=== PATIENT | female | born 1955 | race Caucasian/White ===

== ENCOUNTER 2021-04-12 14:10 | Outpatient (REF) | payer MEDICAID, SELFPAY ==
--- NOTE | ~2021-04-12 | XR_ITS ---
EXAMINATION: XR KNEE, LEFT CLINICAL INFORMATION: Left knee pain. COMPARISON: None. TECHNIQUE: 4 views of the left knee. FINDINGS: Mild medial compartment joint space narrowing. Tiny patellofemoral marginal osteophytes. No osseous erosion. No fracture or dislocation. No abnormal soft tissue calcification. No significant joint effusion. XR/XR knee LT 4V IMPRESSION: Minimal medial and patellofemoral compartment arthrosis.
== END 2021-04-12 14:11 | disposition home or self-care (01) ==
LOC: HO.XRAY 14:10
PROVIDERS: PCP Internal Medicine Geriatric Medicine; Visit Provider Internal Medicine Geriatric Medicine
DX: M25.562 Pain in left knee (principal)
CPT/HCPCS: 73564

== ENCOUNTER 2021-07-13 10:57 | Outpatient (REF) | payer MEDICARE, MEDICAID, SELFPAY ==
--- NOTE | ~2021-07-13 | MM_ITS ---
EXAMINATION: BONE DENSITOMETRY CLINICAL INDICATION: Osteoporosis. COMPARISON: CT abdomen and pelvis 12/04/2018. TECHNIQUE: Using a [employer] DXA System (software version: 13.1) manufactured by [employer], dual-energy x-ray absorptiometry was performed of the lumbar spine and left hip. The images are of good technical quality. Summary results are attached. FINDINGS: AP SPINE L1-L4 (excluding L2 and L3): The data of L1-L4 has been changed to exclude the L2 and L3 vertebral bodies, because degenerative changes at these levels may cause overestimation of lumbar spine density. BMD 1.194 g/cm2, Z-score 1.2, T-score 0.2, normal. LEFT FEMUR, NECK: BMD 1.014 g/cm2, Z-score 0.9, T-score -0.2, normal. LEFT FEMUR, TOTAL: BMD 1.069 g/cm2, Z-score 1.3, T-score 0.5, normal. IDENTIFIED RISK FACTORS: Early menopause, left oophorectomy, rheumatoid arthritis, secondary osteoporosis. HISTORY OF FRACTURE: None listed. MEDICATIONS: Vitamin D. MM/XR DEXA axial skeleton IMPRESSION: 1. DIAGNOSIS: Normal bone density based on the lowest T-score value of -0.2 in the femoral neck applying World Health Organization criteria. 2. 10-YEAR FRACTURE RISK PREDICTION, FRAX: Major osteoporotic fracture (clinical spine, forearm, hip or shoulder) 4.5%. Hip fracture 0.2%. 3. Treatment Recommendations: NOF guidelines recommend consideration for treatment in postmenopausal women and men age 50 and older presenting with the following: -A hip or vertebral (clinical or morphometric) fracture. -T-score less than or equal to -2.5 at the femoral neck or spine after appropriate evaluation to exclude secondary causes. -Low bone mass at the hip or spine and a 10-year fracture probability by FRAX of greater than or equal to 3% for hip fracture or greater than or equal to 20% for major osteoporotic fracture based on the [place] adapted WHO algorithm. 4. Other Recommendations: All treatment decisions require clinical judgment and consideration of individual patient factors, including patient preferences, comorbidities, previous drug use, risk factors not captured in the FRAX model (e.g. frailty, falls, vitamin D deficiency, increased bone turnover, interval significant decline in bone density) and possible under or overestimation of fracture risk by FRAX. FUTURE SCAN RECOMMENDATION: People with diagnosed cases of osteoporosis or at high risk for fracture should have regular bone mineral density tests. For patients eligible for Medicare, routine testing is allowed once every 2 years. The testing frequency can be increased to one year for patients who have rapidly progressing disease, those who are receiving or discontinuing medical therapy to restore bone mass, or have additional risk factors.
== END 2021-07-13 10:58 | disposition home or self-care (01) ==
LOC: HO.MAMMO 10:57
PROVIDERS: Visit Provider Advanced Practice Midwife
DX: Z13.820 Encounter for screening for osteoporosis (principal); Z78.0 Asymptomatic menopausal state; M06.9 Rheumatoid arthritis, unspecified; Z79.899 Other long term (current) drug therapy
CPT/HCPCS: 77080

== ENCOUNTER 2021-09-26 13:59 | Outpatient (REF) | payer MEDICARE, MEDICAID, SELFPAY ==
[2021-09-26 15:04] LABS: MANUAL DIFF FLAG NO
[2021-09-26 15:16] LABS: Basophils Absolute Auto 0.1 X10*3/uL (0.0-0.2); Basophils Percent Auto 0.9 % (0-2); Eosinophils Absolute Auto 0.4 X10*3/uL (0.0-0.4); Eosinophils Percent Auto 3.5 % (0-4); Hematocrit 43.1 % (37.0-47.0); Hemoglobin 13.5 g/dl (12.0-16.0); Imm Gran Abs Auto 0.06 X10*3/uL (0.00-0.03); Imm Gran Pct Auto 0.6 % (0.0-0.4); Lymphocytes Absolute Auto 3.3 X10*3/uL (1.2-4.9); Lymphocytes Percent Auto 32.1 % (20-40); Mean Corpuscular HGB Conc 31.3 g/dl (31.0-35.0); Mean Corpuscular Hemoglobin 29.2 pg (27.0-33.0); Mean Corpuscular Volume 93.3 fL (80.0-98.0); Mean Platelet Volume 10.9 fL (9.4-12.3); Monocytes Absolute Auto 0.8 X10*3/uL (0.1-1.2); Monocytes Percent Auto 7.4 % (2-11); Neutrophils Absolute Auto 5.8 x10*3/uL (2.0-8.3); Neutrophils Percent Auto 55.5 % (45-73); Platelet Count 268 X10*3/uL (160-400); Red Blood Count 4.62 X10*6/uL (4.20-5.50); Red Cell Distribution Width 14.7 % (11.0-16.0); White Blood Count 10.4 X10*3/uL (4.8-10.8)
== END 2021-09-26 14:00 | disposition home or self-care (01) ==
LOC: HO.LAB 13:59
PROVIDERS: PCP Internal Medicine Geriatric Medicine; Visit Provider Internal Medicine Pulmonary Disease
DX: J45.909 Unspecified asthma, uncomplicated (principal); Z91.09 Other allergy status, other than to drugs and biological substances
CPT/HCPCS: 36415; 82785; 85025; 86003; 99202

== ENCOUNTER 2021-11-04 12:42 | Outpatient (REF) | payer MEDICARE, MEDICAID, SELFPAY ==
--- NOTE | 2021-11-04 14:56 | PFT_ITS ---
Forced vital capacity 76%, FEV1 77%, FEV1/FVC ratio is 79. FEF 25-75 67% and MVV 64%. Post bronchodilator therapy, there is no significant change. Total lung capacity 74% and residual volume 72%. Diffusion capacity 70%. CONCLUSION: Mild restrictive pulmonary disorder. No significant response to bronchodilator therapy. No significant degree of obstructive disorder is noted. MD JANES Barrientos/MODL / [id number]
== END 2021-11-04 12:43 | disposition home or self-care (01) ==
LOC: HO.RESP 12:42
PROVIDERS: PCP Internal Medicine Geriatric Medicine; Visit Provider Internal Medicine Pulmonary Disease
DX: J45.909 Unspecified asthma, uncomplicated (principal)
CPT/HCPCS: 94060; 94727; 94729

== ENCOUNTER → 2021-11-25 13:31 | Outpatient (BNVA) | payer MEDICARE, MEDICAID, SELFPAY | PROVIDERS: PCP Internal Medicine Geriatric Medicine; Visit Provider Internal Medicine Pulmonary Disease | DX: J45.909 Unspecified asthma, uncomplicated (principal); Z91.09 Other allergy status, other than to drugs and biological substances | CPT/HCPCS: 99212 ==

== ENCOUNTER 2021-12-23 14:26 | Outpatient (REF) | payer MEDICARE, MEDICAID, SELFPAY ==
--- NOTE | ~2021-12-23 | US_ITS ---
EXAMINATION: US DIAGNOSTIC ULTRASOUND BREAST, LEFT CLINICAL INFORMATION: Retroareolar pain.. COMPARISON: Mammography of same day and studies dating back to September 13, 2012. TECHNIQUE: Ultrasound of the breast is performed with real-time kelly scale imaging and color Doppler. FINDINGS: There is no focal suspicious finding. There is no solid mass, architectural abnormality, duct ectasia, or edema in the soft tissue planes. Results are discussed with the patient at time of visit. US/US breast LT limited IMPRESSION: No suspicious ultrasound findings in region of pain retroareolar region left breast. ASSESSMENT: BI-RADS 1: Negative RECOMMENDATION: Routine annual mammography screening. This patient's information was entered into a reminder system with a target due date for their next mammogram.
--- NOTE | ~2021-12-23 | MM_ITS ---
EXAMINATION: MM DIAGNOSTIC DIGITAL BREAST TOMOSYNTHESIS, BILATERAL US BREAST, TARGETED, LEFT CLINICAL INFORMATION: Left breast pain adjacent to the left nipple. The lifetime risk of breast cancer based on the Tyrer-Cuzick Model is 4.2%. COMPARISON: Mammography: 09/27/2018 and studies dating back to 09/13/2012. TECHNIQUE: Digital breast tomosynthesis is performed in both the craniocaudal and mediolateral oblique views along with computer-aided detection (CAD). Synthesized 2D images are generated from the tomosynthesis. ULTRASOUND: FINDINGS: There are scattered areas of fibroglandular density (ACR BI-RADS breast composition Category b). There are no new significant masses, abnormal calcifications, or other abnormalities. Stable bilateral calcifications and circumscribed densities again seen. Targeted breast ultrasound in the left retroareolar region did not demonstrate any abnormal cystic or solid masses or dilated ducts. No edematous change present. Results are discussed with the patient at time of visit. MM/MM tomosynthesis diagnostic BI IMPRESSION: There are no significant changes from prior study. ASSESSMENT: BI-RADS 1: Negative RECOMMENDATION: Routine annual mammography screening. This patient's information was entered into a reminder system with a target due date for their next mammogram.
== END 2021-12-23 14:27 | disposition home or self-care (01) ==
LOC: HO.MAMMO 14:26
PROVIDERS: PCP Internal Medicine Geriatric Medicine; Visit Provider Internal Medicine Geriatric Medicine
DX: N64.4 Mastodynia (principal)
CPT/HCPCS: 76642; 77062; 77066

== ENCOUNTER 2022-01-26 13:33 | Emergency (ER) | payer MEDICARE, MEDICAID, SELFPAY ==
--- NOTE | ~2022-01-26 | XR_ITS ---
EXAMINATION: XR CHEST CLINICAL INFORMATION: Cough COMPARISON: 12/01/2018 TECHNIQUE: Frontal view of the chest was obtained. FINDINGS: The lungs are well expanded. There is no focal consolidation, edema, or effusion. No pneumothorax. The cardiomediastinal silhouette is within normal limits. No acute osseous abnormality. XR/XR chest 1V IMPRESSION: Clear lungs.
[2022-01-26 13:35] VITALS: BP 149/93; PULSE 92; RESP 20; TEMP 36.9; O2SAT 96; BMI 36.4
[2022-01-26 14:10] LABS: COVID-19 Test Negative (Negative); IDNOW Serial# 16C4AD1C
[2022-01-26 14:21] LABS: Strep A Nucleic Acid Negative (Negative)
--- NOTE | 2022-01-26 16:11 | ECG_ITS ---
Test Reason : dyspnea Blood Pressure : / mmHG Vent. Rate : 080 BPM Atrial Rate : 080 BPM P-R Int : 132 ms QRS Dur : 086 ms QT Int : 412 ms P-R-T Axes : 017 -10 011 degrees QTc Int : 475 ms Normal sinus rhythm Minimal voltage criteria for LVH, may be normal variant ( R in aVL ) Borderline ECG When compared with ECG of 01-DEC-2018 11:39, Vent. rate has increased BY 29 BPM Nonspecific T wave abnormality, worse in Anterior leads QT has lengthened Referred By: Cheryl Valdez Electronically Signed By:PRUDENCE JIN MD
[2022-01-26] MEDS: Albuterol Sulfate (0.083%) 2.5 MG/3 ML VIAL.NEB 5 MG INHALE (16:28)
--- NOTE | 2022-01-26 16:29 | ED.URI ---
HPI - URI/Sore Throat General Chief Complaint: General Medical Stated Complaint: COUGH CHEST AND BACK PAIN Time Seen by Provider: 01/26/22 16:04 Source: patient Mode of arrival: ambulatory Limitations: language barrier (Pashto-Speaking) History of Present Illness HPI Narrative: 66-year-old female with a past medical history of asthma, environmental allergies, GERD, hyperlipidemia, hypertension, hypothyroidism, major depressive disorder and obesity presenting to the ED with complaints of subjective fevers, chills, fatigue, malaise, productive cough, nasal congestion / rhinorrhea, shortness of breath, dyspnea on exertion, orthopnea Radha, wheezing, chest pain/tightness for approximately 2 weeks which has been persistent not worsening although not getting better either. She reports that she is currently on Symbicort, albuterol and Singulair and no symptomatic relief. She denies any recent travel or sick contacts that she is aware of. She denies any dizziness, headaches, neck pain/stiffness, paresthesias, black or bloody sputum production, palpitations, nausea /vomiting / diarrhea or constipation, abdominal pain, back pain, dysuria, hematuria, abnormal vaginal discharge, lower extremity edema or calf tenderness, recent travel or sick contacts that she is aware of or any other symptoms complaints or concerns at this time. MD elicited complaint: fever, cough, rhinorrhea, nasal congestion and other ( Multiple complaints) Pertinent past history: other ( see above) Onset (ago): week(s) (2) Consistency: constant and progressively worsening Severity: moderate Description of mucous: clear, watery and yellow Able to tolerate fluids by mouth: Yes Exacerbating factors: exertion and deep breaths Relieving factors: nothing Associated symptoms: fever, chills, myalgias, diaphoresis, rhinorrhea, nasal congestion, cough, chest pain and shortness of breath Treatments prior to arrival: other ( see above) Related Data Home Medications Medication Instructions Recorded Confirmed albuterol sulfate 90 mcg/actuation 2 puff INHALATION QID 09/26/21 aerosol inhaler (ProAir HFA) amlodipine 5 mg tablet 5 mg PO DAILY 09/26/21 atorvastatin 20 mg tablet 20 mg PO DAILY 09/26/21 cholecalciferol (vitamin D3) 25 25 mcg PO DAILY 09/26/21 mcg (1,000 unit) capsule citalopram 20 mg tablet 20 mg PO DAILY 09/26/21 clonazepam 2 mg tablet 2 mg PO DAILY 09/26/21 levothyroxine 88 mcg tablet 88 mcg PO DAILY 09/26/21 (Unithroid) montelukast 10 mg tablet 10 mg PO DAILY 09/26/21 nabumetone 750 mg tablet 750 mg PO BID 09/26/21 nortriptyline 10 mg capsule 10 mg PO DAILY 09/26/21 omeprazole 20 mg capsule,delayed 20 mg PO DAILY 09/26/21 release pregabalin 50 mg capsule (Lyrica) 50 mg PO DAILY 09/26/21 tizanidine 4 mg capsule 4 mg PO BID PRN 09/26/21 trazodone 50 mg tablet 50 mg PO DAILY 09/26/21 Previous Rx's Medication Instructions Recorded fluticasone fur. 200 mcg-umeclid 1 inh INHALATION DAILY 30 Days #1 11/25/21 62.5 mcg-vilant 25 mcg ea inhalat.powder (Trelegy Ellipta) albuterol sulfate 0.63 mg/3 mL 0.63 mg (3 mL) INHALATION QID PRN 01/26/22 solution for nebulization #75 ml albuterol sulfate 90 mcg/actuation 1 inh INHALATION QID PRN #8.5 g 01/26/22 aerosol inhaler doxycycline monohydrate 100 mg 100 mg PO BID 10 Days #20 tab 01/26/22 tablet prednisone 20 mg tablet 40 mg PO DAILY 5 Days #10 tab 01/26/22 Allergies Allergy/AdvReac Type Severity Reaction Status Date / Time morphine [MORPHINE] Allergy Unknown RASH, Verified 11/25/21 13:38 rash, vomiting Review of Systems Review of Systems: Constitutional : denies med noncompliance, no history of PE or DVT, denies recent travel, No Fever, No Chills ENT/Mouth : No Hoarseness, No sore throat, + Rhinorrhea, + Nasal congestion, No Sinus Pressure, No Ear Pain, No stridor, Eyes: No Redness, No Discharge, No Vision Changes Cardiovascular : + Chest Pain, + SOB, + Dyspnea on Exertion, No Edema, no pleurisy, Respiratory : + Cough, + wheezing, + Sputum, no stridor, no hemoptysis, Gastrointestinal : No Nausea, No Vomiting, No Diarrhea, No abdominal Pain Genitourinary : No Dysuria, No Hematuria Musculoskeletal : No joint pain/swelling, + Myalgias Extremities: no extremity swelling /pain Skin : No rash, no itching, no swelling Neuro : No Weakness, No Numbness, No Headache, No Dizziness, No Paresthesias Psych : No anxiety, depression Heme/Lymph: No Bruising, No Bleeding Endocrine : No Polyuria, No Polydipsia Yes all other systems are reviewed and are negative [facility] Past Medical History Attestation statement: The following information was validated with the patient. Source: old records reviewed, obtained from family and nursing notes reviewed Medical History Asthma Environmental allergies GERD (gastroesophageal reflux disease) Hyperlipidemia Hypertension Hypothyroidism MDD (major depressive disorder) Obesity Surgical History History of laparoscopic cholecystectomy (~2018) Social History Social History Advance Directives: No Advance Directives Information Provided: No Physical Exam Vital Signs: Vital Signs: Last Vital Signs Temp 98.4 F 01/26/22 13:35 Pulse 75 01/26/22 16:31 Resp 16 01/26/22 16:31 BP 149/93 H 01/26/22 13:35 Pulse Ox 96 01/26/22 13:35 BMI result Body Mass Index 36.4 vital signs have been reviewed as normal and appeared to be correct. Blood pressure 149/93. Heart rate normal. Respiration rate normal. Temperature normal. Oxygen saturation normal. Appearance: Alert. Oriented X3. No acute distress. Head: Normal external exam. Normocephalic. Atraumatic. Eyes: PERRLA. EOMI. Conjunctiva and sclera normal. Eyelids normal. ENT: EAC normal. TM's Normal. Pharynx normal. Uvula midline. Moist mucous membranes. No lesions/ulcerations or masses noted on the tongue. Normal voice. No trismus noted. No drooling noted. No muffled voice noted. Neck: Normal inspection. Neck supple. FROM. No adenopathy. Thyroid Normal. No tracheal deviation noted. No crepitus is noted. No meningeal signs. No neck mass noted. No signs of trauma noted. CVS: Normal heart rate and rhythm. Heart sound normal. Pulses normal throughout. No murmurs/rales/gallops. Respiratory: No respiratory distress. although decreased breath sounds with expiratory wheezing at the bases. No rales/ rhonchi. Chest is nontender. No crepitus is noted. No signs of trauma noted. Painless inspiration. No accessory muscle usage or decreased air movement. Abdomen: Soft and nontender. Bowel sounds normal in all 4 quadrants. No distention noted. No organomegaly noted. No visible injury noted. Back: Full range of motion noted. Nontender. Skin: Skin warm and dry. Normal skin color. Normal skin turgor. No rashes/lesions/lacerations noted. Extremities: No lower extremity edema. No calf tenderness is noted. Extremities exhibit normal range of motion and nontender. Neuro: Oriented X 3. No motor deficit. No sensory deficit. Reflexes normal. Normal steady gait. No focal neuro deficits noted. CN's II-XII intact bilaterally? Vascular: + radial pulses/+ 2 distal pedal pulses/+2 dorsalis pedis b/l. Normal cap refill. No cyanosis noted to upper extremity nails and lower extremity toes nails. Course Course Course Narrative: 16:15pm - 66-year-old female with a past medical history of asthma, environmental allergies, GERD, hyperlipidemia, hypertension, hypothyroidism, major depressive disorder and obesity presenting to the ED with complaints of subjective fevers, chills, fatigue, malaise, productive cough, nasal congestion / rhinorrhea, shortness of breath, dyspnea on exertion, orthopnea Radha, wheezing, chest pain/tightness for approximately 2 weeks which has been persistent not worsening although not getting better either. She reports that she is currently on Symbicort, albuterol and Singulair and no symptomatic relief. Patient negative for COVID and strep. Will obtain labs, EKG, chest x-ray provider breathing treatment 60 mg of prednisone and re-evaluate. Reevaluation(s) Reevaluation #1: - labs reviewed and all within normal limits. Troponin negative. Chest x-ray within normal limits no acute processes noted. EKG normal sinus rhythm no acute processes noted similar compared to prior EKG. Patient reports she feels better after her breathing treatment. 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 Patient understands agrees with this plan. Time: 17:11 MDM - URI/Sore Throat Medical Records Attestation: I reviewed the patient's medical records. Lab Data Attestation: I reviewed the patient's lab results. Result diagrams: 01/26/22 16:28 01/26/22 16:28 Labs: Lab Results 01/26/22 01/26/22 01/26/22 Range/Units 13:39 13:40 16:28 WBC 10.2 (4.8-10.8) X10*3/uL RBC 4.60 (4.20-5.50) X10*6/uL Hgb 12.9 (12.0-16.0) g/dl Hct 41.1 (37.0-47.0) % MCV 89.3 (80.0-98.0) fL MCH 28.0 (27.0-33.0) pg MCHC 31.4 (31.0-35.0) g/dl RDW 15.7 (11.0-16.0) % Plt Count 228 (160-400) X10*3/uL MPV 10.7 (9.4-12.3) fL Immature Gran % (Auto) 1.2 H (0.0-0.4) % Neut % (Auto) 53.2 (45-73) % Lymph % (Auto) 35.9 (20-40) % [place] % (Auto) 7.4 (2-11) % Eos % (Auto) 1.9 (0-4) % Baso % (Auto) 0.4 (0-2) % Lymph # (Auto) 3.7 (1.2-4.9) X10*3/uL [place] # (Auto) 0.8 (0.1-1.2) X10*3/uL Eos # (Auto) 0.2 (0.0-0.4) X10*3/uL Baso # (Auto) 0.0 (0.0-0.2) X10*3/uL Abs Immat Gran (auto) 0.12 H (0.00-0.03) X10*3/uL Absolute Neuts (auto) 5.4 (2.0-8.3) x10*3/uL Absolute Nucleated RBC 0.000 (0.0-0.012) X10*3/uL Nucleated RBC % (auto) 0.0 (0.0-0.2) /100WBC Sodium (135-145) mmol/L Potassium (3.3-5.1) mmol/L Chloride (96-108) mmol/L Carbon Dioxide (22-29) mmol/L Anion Gap (12-20) BUN (9-16) mg/dL Creatinine (0.5-1.4) mg/dL Estim Creat Clear Calc Estimated GFR Random Glucose (60-115) mg/dL Calcium (8.4-10.2) mg/dL Magnesium (1.6-2.6) mg/dL Total Bilirubin (0.0-1.0) mg/dL AST (5-31) U/L ALT (0-31) U/L Alkaline Phosphatase (39-117) U/L Troponin I High Sens (<3.5-17.0) ng/L B-Natriuretic Peptide (<100) pg/mL Total Protein (6.5-8.0) g/dL Albumin (3.5-5.0) g/dL COVID-19 (CONY) Negative (Negative) COVID-19 Clin Com See Note Influenza Type A (KIARA) (Negative) Influenza Type B (KIARA) (Negative) Influenza A & B Note S. pyogenes GrpA KIARA Negative (Negative) 01/26/22 01/26/22 01/26/22 Range/Units 16:28 16:28 16:28 WBC (4.8-10.8) X10*3/uL RBC (4.20-5.50) X10*6/uL Hgb (12.0-16.0) g/dl Hct (37.0-47.0) % MCV (80.0-98.0) fL MCH (27.0-33.0) pg MCHC (31.0-35.0) g/dl RDW (11.0-16.0) % Plt Count (160-400) X10*3/uL MPV (9.4-12.3) fL Immature Gran % (Auto) (0.0-0.4) % Neut % (Auto) (45-73) % Lymph % (Auto) (20-40) % [place] % (Auto) (2-11) % Eos % (Auto) (0-4) % Baso % (Auto) (0-2) % Lymph # (Auto) (1.2-4.9) X10*3/uL [place] # (Auto) (0.1-1.2) X10*3/uL Eos # (Auto) (0.0-0.4) X10*3/uL Baso # (Auto) (0.0-0.2) X10*3/uL Abs Immat Gran (auto) (0.00-0.03) X10*3/uL Absolute Neuts (auto) (2.0-8.3) x10*3/uL Absolute Nucleated RBC (0.0-0.012) X10*3/uL Nucleated RBC % (auto) (0.0-0.2) /100WBC Sodium 142 (135-145) mmol/L Potassium 4.1 (3.3-5.1) mmol/L Chloride 108 (96-108) mmol/L Carbon Dioxide 25 (22-29) mmol/L Anion Gap 13 (12-20) BUN 14 (9-16) mg/dL Creatinine 0.92 (0.5-1.4) mg/dL Estim Creat Clear Calc 61.3 Estimated GFR > 60 Random Glucose 102 (60-115) mg/dL Calcium 9.3 (8.4-10.2) mg/dL Magnesium 1.7 (1.6-2.6) mg/dL Total Bilirubin 0.4 (0.0-1.0) mg/dL AST 22 (5-31) U/L ALT 29 (0-31) U/L Alkaline Phosphatase 80 (39-117) U/L Troponin I High Sens < 3.5 (<3.5-17.0) ng/L B-Natriuretic Peptide 11 (<100) pg/mL Total Protein 6.8 (6.5-8.0) g/dL Albumin 3.9 (3.5-5.0) g/dL COVID-19 (CONY) (Negative) COVID-19 Clin Com Influenza Type A (KIARA) Negative (Negative) Influenza Type B (KIARA) Negative (Negative) Influenza A & B Note See Note S. pyogenes GrpA KIARA (Negative) Imaging Data Chest x-ray: Attestation: I personally reviewed and interpreted this imaging study as follows: Radiologist's impression: FINDINGS: The lungs are well expanded. There is no focal consolidation, edema, or effusion. No pneumothorax. The cardiomediastinal silhouette is within normal limits. No acute osseous abnormality. XR/XR chest 1V IMPRESSION: Clear lungs. ECG Data Attestation: I personally reviewed and interpreted this ECG as follows: ECG interpretation date: 01/26/22 ECG interpretation time: 16:14 Interpretation: Normal sinus rhythm with ventricular rate of 80 with minimal voltage criteria for LVH otherwise no acute ischemic change are noted. Similar when compared to prior EKG similar when compared to prior EKG 12/01/2018. Critical Care Time Critical Care Time Critical Care Time: Yes Total Critical Care Time: 60 Attestation: I personally attest to this time spent taking care of the patient Discharge Plan Discharge Clinical Impression: Asthma exacerbation, Bronchitis Patient Disposition: Home, Self-Care Instructions: Asthma (ED), Acute Bronchitis (ED) Prescriptions: New prednisone 20 mg tablet 40 mg PO DAILY 5 Days Qty: 10 0RF albuterol sulfate 90 mcg/actuation HFA aerosol inhaler 1 inh inhalation QID PRN (Reason: shortness of breath or wheezing) Qty: 8.5 0RF doxycycline monohydrate 100 mg tablet 100 mg PO BID 10 Days Qty: 20 0RF albuterol sulfate 0.63 mg/3 mL solution for nebulization 0.63 mg inhalation QID PRN (Reason: shortness of breath or wheezing) Qty: 75 0RF No Action Trelegy Ellipta 200-62.5-25 mcg blister with device 1 inh inhalation DAILY 30 Days Qty: 1 6RF levothyroxine [Unithroid] 88 mcg tablet 88 mcg PO DAILY 0RF tizanidine 4 mg capsule 4 mg PO BID PRN0RF citalopram 20 mg tablet 20 mg PO DAILY 0RF omeprazole 20 mg capsule,delayed release(DR/EC) 20 mg PO DAILY 0RF atorvastatin 20 mg tablet 20 mg PO DAILY 0RF nortriptyline 10 mg capsule 10 mg PO DAILY 0RF albuterol sulfate [ProAir HFA] 90 mcg/actuation HFA aerosol inhaler 2 puff inhalation QID 0RF clonazepam 2 mg tablet 2 mg PO DAILY 0RF trazodone 50 mg tablet 50 mg PO DAILY 0RF pregabalin [Lyrica] 50 mg capsule 50 mg PO DAILY 0RF nabumetone 750 mg tablet 750 mg PO BID 0RF amlodipine 5 mg tablet 5 mg PO DAILY 0RF cholecalciferol (vitamin D3) 25 mcg (1,000 unit) capsule 25 mcg PO DAILY 0RF montelukast 10 mg tablet 10 mg PO DAILY 0RF Referrals: Name,MD Kevin [Primary Care Provider] - 2 days Print Language: Romanian
[2022-01-26 16:31] VITALS: PULSE 75; RESP 16; O2SAT 99
[2022-01-26 16:34] LABS: MANUAL DIFF FLAG NO
[2022-01-26 16:35] LABS: Basophils Percent Auto 0.4 % (0-2); Eosinophils Absolute Auto 0.2 X10*3/uL (0.0-0.4); Eosinophils Percent Auto 1.9 % (0-4); Hematocrit 41.1 % (37.0-47.0); Hemoglobin 12.9 g/dl (12.0-16.0); Imm Gran Abs Auto 0.12 X10*3/uL (0.00-0.03); Imm Gran Pct Auto 1.2 % (0.0-0.4); Lymphocytes Absolute Auto 3.7 X10*3/uL (1.2-4.9); Lymphocytes Percent Auto 35.9 % (20-40); Mean Corpuscular HGB Conc 31.4 g/dl (31.0-35.0); Mean Corpuscular Volume 89.3 fL (80.0-98.0); Mean Platelet Volume 10.7 fL (9.4-12.3); Monocytes Absolute Auto 0.8 X10*3/uL (0.1-1.2); Monocytes Percent Auto 7.4 % (2-11); Neutrophils Absolute Auto 5.4 x10*3/uL (2.0-8.3); Neutrophils Percent Auto 53.2 % (45-73); Platelet Count 228 X10*3/uL (160-400); Red Cell Distribution Width 15.7 % (11.0-16.0); White Blood Count 10.2 X10*3/uL (4.8-10.8)
[2022-01-26 16:52] LABS: Alanine Aminotransferase 29 U/L (0-31); Albumin Level 3.9 g/dL (3.5-5.0); Alkaline Phosphatase 80 U/L (39-117); Anion Gap 13 (12-20); Aspartate Amino Transferase 22 U/L (5-31); Bilirubin Total 0.4 mg/dL (0.0-1.0); Blood Urea Nitrogen 14 mg/dL (9-16); Calcium 9.3 mg/dL (8.4-10.2); Carbon Dioxide 25 mmol/L (22-29); Chloride 108 mmol/L (96-108); Creatinine Clr Calc Pharmacy 61.3; Estimated Glomerular Filt Rate > 60; Glucose Random 102 mg/dL (60-115); Influenza A Negative (Negative); Influenza B2 Negative (Negative); Magnesium 1.7 mg/dL (1.6-2.6); Potassium 4.1 mmol/L (3.3-5.1); Sodium 142 mmol/L (135-145); Total Protein 6.8 g/dL (6.5-8.0)
[2022-01-26 16:59] LABS: Troponin-I High Sensitivity < 3.5 ng/L (<3.5-17.0)
[2022-01-26] MEDS: predniSONE 20 MG TABLET 60 MG PO (17:23)
[2022-01-26 17:26] LABS: B Type Natriuretic Peptide 11 pg/mL (<100)
== END 2022-01-26 17:32 | disposition home or self-care (01) ==
PROVIDERS: Physician Assistant Medical; Emergency Provider Emergency Medicine; PCP Internal Medicine Geriatric Medicine
DX: J45.901 Unspecified asthma with (acute) exacerbation (principal); I10 Essential (primary) hypertension; Z20.822 Contact with and (suspected) exposure to COVID-19
CPT/HCPCS: 36415; 71045; 80053; 83735; 83880; 84484; 85025; 87502; 87635; 87651; 93005; 94640; 99282; 99284

== ENCOUNTER 2022-04-05 12:47 | Emergency (ER) | payer MEDICARE, MEDICAID, SELFPAY ==
--- NOTE | ~2022-04-05 | US_ITS ---
EXAMINATION: US VENOUS ULTRASOUND WITH DOPPLER LOWER EXTREMITY, BILATERAL CLINICAL INFORMATION: Leg swelling. COMPARISON: None TECHNIQUE: Ultrasound of the deep veins is performed from the hip to the calf with compression sonography and color and pulse Doppler assessment. Spectral analysis with color-flow imaging is performed. FINDINGS: RIGHT: There is normal venous compression and respiratory variation and augmented flow. The visualized common femoral vein, superficial femoral vein, profunda femoral vein, popliteal vein, and the trifurcation region shows no evidence of deep venous thrombosis. No right popliteal cyst. The subcutaneous soft tissues are unremarkable. LEFT: There is normal venous compression and respiratory variation and augmented flow. The visualized common femoral vein, superficial femoral vein, profunda femoral vein, popliteal vein, and the trifurcation region shows no evidence of deep venous thrombosis. No left popliteal cyst. The subcutaneous soft tissues are unremarkable. If the patient's symptoms persist, followup ultrasound in 5 days 7 days might be of value to exclude proximal propagation from a non-visualized calf vein. US/US venous duplex LE BI IMPRESSION: No evidence for deep venous thrombosis in the visualized veins of the bilateral lower extremities.
[2022-04-05 13:52] VITALS: BP 155/85; PULSE 86; RESP 18; TEMP 36.7; O2SAT 99; BMI 38.4
--- NOTE | 2022-04-05 16:06 | ED_ITS ---
HPI - Extremity Problem General Chief complaint: Extremity Injury, Lower Stated complaint: ? blood clot in leg Time Seen by Provider: 04/05/22 16:05 Source: patient Mode of arrival: ambulatory Limitations: no limitations History of Present Illness HPI Narrative: 66-year-old female with history of asthma, fibromyalgia, HTN, HLD, migraine headaches, chronic back pain seasonal allergies who presents to the ER for ev aluation of a possible blood clot in her leg. She states she was seen at the [facility] yesterday for lower extremity swelling that has been going on since March 16. She had blood work done there. She was called today and told that she has a blood clot in her leg and she needs to go to the hospital. She denies ever having an ultrasound done there. She reports both of her lower extremities are very sore and swollen. She denies any trauma. She is not on any blood thinners. She does not have a history of any blood clots in the past. She has no chest pain or shortness of breath. She reports some back pain which she attributes to kidney pain. She denies any hematuria or dysuria. MD Complaint: extremity swelling Onset (ago): week(s) Pain Consistency: constant Location: left, right and lower extremity Severity scale (1-10): 7 Quality: aching Radiation: proximal Relieving factors: elevation Exacerbating factors: weight bearing, exertion and palpation Associated symptoms: myalgias Related Data Home Medications Medication Instructions Recorded Confirmed albuterol sulfate 90 mcg/actuation 2 puff inhalation QID 09/26/21 aerosol inhaler (ProAir HFA) amlodipine 5 mg tablet 5 mg PO DAILY 09/26/21 atorvastatin 20 mg tablet 20 mg PO DAILY 09/26/21 cholecalciferol (vitamin D3) 25 25 mcg PO DAILY 09/26/21 mcg (1,000 unit) capsule citalopram 20 mg tablet 20 mg PO DAILY 09/26/21 clonazepam 2 mg tablet 2 mg PO DAILY 09/26/21 levothyroxine 88 mcg tablet 88 mcg PO DAILY 09/26/21 (Unithroid) montelukast 10 mg tablet 10 mg PO DAILY 09/26/21 nabumetone 750 mg tablet 750 mg PO BID 09/26/21 nortriptyline 10 mg capsule 10 mg PO DAILY 09/26/21 omeprazole 20 mg capsule,delayed 20 mg PO DAILY 09/26/21 release pregabalin 50 mg capsule (Lyrica) 50 mg PO DAILY 09/26/21 tizanidine 4 mg capsule 4 mg PO BID PRN 09/26/21 trazodone 50 mg tablet 50 mg PO DAILY 09/26/21 Previous Rx's Medication Instructions Recorded fluticasone fur. 200 mcg-umeclid 1 inh inhalation DAILY 30 days #1 11/25/21 62.5 mcg-vilant 25 mcg ea inhalat.powder (Trelegy Ellipta) albuterol sulfate 0.63 mg/3 mL 0.63 mg (3 mL) inhalation QID PRN 01/26/22 solution for nebulization shortness of breath or wheezing #75 mL albuterol sulfate 90 mcg/actuation 1 inh inhalation QID PRN shortness 01/26/22 aerosol inhaler of breath or wheezing #8.5 grams doxycycline monohydrate 100 mg 100 mg PO BID Bronchitis/asthma 01/26/22 tablet exacerbation 10 days #20 tabs prednisone 20 mg tablet 40 mg PO DAILY rash 5 days #10 tabs 01/26/22 Allergies Allergy/AdvReac Type Severity Reaction Status Date / Time morphine [MORPHINE] Allergy Unknown RASH, Verified 04/05/22 13:52 rash, vomiting Review of Systems Review of Systems: Constitutional: No Fever, No Chills ENT/Mouth: No sore throat, No Rhinorrhea, No Swallowing Difficulty Eyes: No Eye Pain, No Swelling, No Redness Cardiovascular: No Chest Pain, No SOB, No Orthopnea, + Edema Respiratory: No Cough, No Sputum, No Wheezing, No dyspnea Gastrointestinal: No Nausea, No Vomiting, No Diarrhea, No abdominal Pain, No H ematochezia, No Melena Genitourinary: No Dysuria, No Urinary Frequency, No Hematuria Musculoskeletal: No joint pain, + Myalgias Skin: No Skin Lesions, No rash Neuro: No Weakness, No Numbness, No Dizziness, No Headache Psych: No Anxiety/Panic, No Depression Heme/Lymph: No Bruising, No Lymphadenopathy Endocrine: No Polyuria, No Polydipsia PMFSH Past Medical History Medical History Asthma Environmental allergies GERD (gastroesophageal reflux disease) Hyperlipidemia Hypertension Hypothyroidism MDD (major depressive disorder) Obesity Surgical History History of laparoscopic cholecystectomy (~2018) Social History Social History Advance Directives: Yes Advance Directives Information Provided: Yes Advance Directives on File: No Physical Exam Vital Signs: Vital Signs: Last Vital Signs Temp 98.1 F 04/05/22 13:52 Pulse 86 04/05/22 13:52 Resp 18 04/05/22 13:52 BP 155/85 H 04/05/22 13:52 Pulse Ox 99 04/05/22 13:52 O2 Del Method 04/05/22 13:52 BMI result Body Mass Index 38.4 Appearance: Alert. Oriented X3. No acute distress. Eyes: Pupils equal, round and reactive to light. ENT: Pharynx normal. Neck: Normal inspection. Neck supple. CVS: Normal heart rate and rhythm. Pulses normal. Respiratory: No respiratory distress. Breath sounds normal. Abdomen: Soft and nontender. +BS x4 Skin: Skin warm and dry. Normal skin color. Normal skin turgor. No rashes. Extremities: 2+ bilateral lower extremity edema pitting, tender calves bilaterally. Neuro: Oriented X 3. No motor deficit. No sensory deficit. Slow but steady gait. Course Course Course Narrative: 66-year-old female presents to the ER with lower extremity swelling for the last few weeks. She has calf tenderness bilaterally and pitting edema of the lower legs. She is ambulatory. She has no chest pain, no shortness of breath, no pleuritic pain, no tachycardia no hypoxia. She reports she was told she had a blood clot based on blood work that was done at the [facility] the other day. Will plan to get lower extremity Dopplers now, check coags, LFTs and CBC in anticipation of starting anticoagulation today. Reevaluation(s) Reevaluation #1: Lower extremity Dopplers are negative for DVT. Patient has no signs or symptoms of pulmonary embolism at this time. Her heart rates are normal. She is not hypoxic. Her lower extremity edema is equal and bilateral. She has no known hypercoagulable state and no history of blood clots in the past. No recent moise rgeries, no recent travel. Low suspicion for pulmonary embolism at this time. Will have her follow up back up with her PCP, start elevation, recommended compression stockings. Advised to return to the emergency room or call 911 if she develops shortness of breath, chest pain, dizziness or any worsening of her symptoms. Stable for DC home. MDM - Extremity (Nontraumatic) Lab Data Result diagrams: 04/05/22 17:21 04/05/22 17:21 Labs: Lab Results 04/05/22 04/05/22 04/05/22 Range/Units 17:21 17:21 17:21 WBC 7.9 (4.8-10.8) X10*3/uL RBC 4.28 (4.20-5.50) X10*6/uL Hgb 12.4 (12.0-16.0) g/dl Hct 39.1 (37.0-47.0) % MCV 91.4 (80.0-98.0) fL MCH 29.0 (27.0-33.0) pg MCHC 31.7 (31.0-35.0) g/dl RDW 16.4 H (11.0-16.0) % Plt Count 298 D (160-400) X10*3/uL MPV 10.9 (9.4-12.3) fL Immature Gran % (Auto) 0.6 H (0.0-0.4) % Neut % (Auto) 43.4 L (45-73) % Lymph % (Auto) 40.1 H (20-40) % [place] % (Auto) 8.4 (2-11) % Eos % (Auto) 6.6 H (0-4) % Baso % (Auto) 0.9 (0-2) % Lymph # (Auto) 3.2 (1.2-4.9) X10*3/uL [place] # (Auto) 0.7 (0.1-1.2) X10*3/uL Eos # (Auto) 0.5 H (0.0-0.4) X10*3/uL Baso # (Auto) 0.1 (0.0-0.2) X10*3/uL Abs Immat Gran (auto) 0.05 H (0.00-0.03) X10*3/uL Absolute Neuts (auto) 3.4 (2.0-8.3) x10*3/uL Absolute Nucleated RBC 0.000 (0.0-0.012) X10*3/uL Nucleated RBC % (auto) 0.0 (0.0-0.2) /100WBC PT 10.5 (10.0-13.1) SEC INR 0.9 (0.9-1.1) APTT 34.3 (26.0-36.4) SEC Sodium 144 (135-145) mmol/L Potassium 3.8 (3.3-5.1) mmol/L Chloride 110 H (96-108) mmol/L Carbon Dioxide 22 (22-29) mmol/L Anion Gap 16 (12-20) BUN 13 (9-16) mg/dL Creatinine 0.85 (0.5-1.4) mg/dL Estim Creat Clear Calc 65.5 Estimated GFR > 60 Random Glucose 89 (60-115) mg/dL Calcium 8.8 (8.4-10.2) mg/dL Total Bilirubin 0.5 (0.0-1.0) mg/dL Direct Bilirubin 0.2 (0.0-0.5) mg/dL AST 18 (5-31) U/L ALT 19 (0-31) U/L Alkaline Phosphatase 84 (39-117) U/L B-Natriuretic Peptide (<100) pg/mL Total Protein 6.8 (6.5-8.0) g/dL Albumin 4.1 (3.5-5.0) g/dL 04/05/22 Range/Units 17:21 WBC (4.8-10.8) X10*3/uL RBC (4.20-5.50) X10*6/uL Hgb (12.0-16.0) g/dl Hct (37.0-47.0) % MCV (80.0-98.0) fL MCH (27.0-33.0) pg MCHC (31.0-35.0) g/dl RDW (11.0-16.0) % Plt Count (160-400) X10*3/uL MPV (9.4-12.3) fL Immature Gran % (Auto) (0.0-0.4) % Neut % (Auto) (45-73) % Lymph % (Auto) (20-40) % [place] % (Auto) (2-11) % Eos % (Auto) (0-4) % Baso % (Auto) (0-2) % Lymph # (Auto) (1.2-4.9) X10*3/uL [place] # (Auto) (0.1-1.2) X10*3/uL Eos # (Auto) (0.0-0.4) X10*3/uL Baso # (Auto) (0.0-0.2) X10*3/uL Abs Immat Gran (auto) (0.00-0.03) X10*3/uL Absolute Neuts (auto) (2.0-8.3) x10*3/uL Absolute Nucleated RBC (0.0-0.012) X10*3/uL Nucleated RBC % (auto) (0.0-0.2) /100WBC PT (10.0-13.1) SEC INR (0.9-1.1) APTT (26.0-36.4) SEC Sodium (135-145) mmol/L Potassium (3.3-5.1) mmol/L Chloride (96-108) mmol/L Carbon Dioxide (22-29) mmol/L Anion Gap (12-20) BUN (9-16) mg/dL Creatinine (0.5-1.4) mg/dL Estim Creat Clear Calc Estimated GFR Random Glucose (60-115) mg/dL Calcium (8.4-10.2) mg/dL Total Bilirubin (0.0-1.0) mg/dL Direct Bilirubin (0.0-0.5) mg/dL AST (5-31) U/L ALT (0-31) U/L Alkaline Phosphatase (39-117) U/L B-Natriuretic Peptide 24 (<100) pg/mL Total Protein (6.5-8.0) g/dL Albumin (3.5-5.0) g/dL Critical Care Time Critical Care Time Critical Care Time: No Discharge Plan Discharge Clinical Impression: Bilateral edema of lower extremity Patient Disposition: Home, Self-Care Instructions: Leg Edema (ED) Additional Instructions: Your lab workup today was unremarkable. Your ultrasound did not show any evidence of blood clots. Recommend elevating your legs whenever possible. Recommend compression stockings Limit your salt intake. Follow up with your doctor. If you develop shortness of breath, chest pain, or any new or worsening symptoms call 911 or come back to the ER for further evaluation. Prescriptions: No Action prednisone 20 mg tablet 40 mg PO DAILY 5 Days Qty: 10 0RF albuterol sulfate 90 mcg/actuation HFA aerosol inhaler 1 inh inhalation QID PRN (Reason: shortness of breath or wheezing) Qty: 8.5 0RF doxycycline monohydrate 100 mg tablet 100 mg PO BID 10 Days Qty: 20 0RF albuterol sulfate 0.63 mg/3 mL solution for nebulization 0.63 mg inhalation QID PRN (Reason: shortness of breath or wheezing) Qty: 75 0RF Trelegy Ellipta 200-62.5-25 mcg blister with device 1 inh inhalation DAILY 30 Days Qty: 1 6RF levothyroxine [Unithroid] 88 mcg tablet 88 mcg PO DAILY tizanidine 4 mg capsule 4 mg PO BID PRN citalopram 20 mg tablet 20 mg PO DAILY omeprazole 20 mg capsule,delayed release(DR/EC) 20 mg PO DAILY atorvastatin 20 mg tablet 20 mg PO DAILY nortriptyline 10 mg capsule 10 mg PO DAILY albuterol sulfate [ProAir HFA] 90 mcg/actuation HFA aerosol inhaler 2 puff inhalation QID clonazepam 2 mg tablet 2 mg PO DAILY trazodone 50 mg tablet 50 mg PO DAILY pregabalin [Lyrica] 50 mg capsule 50 mg PO DAILY nabumetone 750 mg tablet 750 mg PO BID amlodipine 5 mg tablet 5 mg PO DAILY cholecalciferol (vitamin D3) 25 mcg (1,000 unit) capsule 25 mcg PO DAILY montelukast 10 mg tablet 10 mg PO DAILY
[2022-04-05 17:28] LABS: MANUAL DIFF FLAG NO
[2022-04-05 17:29] LABS: Basophils Absolute Auto 0.1 X10*3/uL (0.0-0.2); Basophils Percent Auto 0.9 % (0-2); Eosinophils Absolute Auto 0.5 X10*3/uL (0.0-0.4); Eosinophils Percent Auto 6.6 % (0-4); Hematocrit 39.1 % (37.0-47.0); Hemoglobin 12.4 g/dl (12.0-16.0); Imm Gran Abs Auto 0.05 X10*3/uL (0.00-0.03); Imm Gran Pct Auto 0.6 % (0.0-0.4); Lymphocytes Absolute Auto 3.2 X10*3/uL (1.2-4.9); Lymphocytes Percent Auto 40.1 % (20-40); Mean Corpuscular HGB Conc 31.7 g/dl (31.0-35.0); Mean Corpuscular Volume 91.4 fL (80.0-98.0); Mean Platelet Volume 10.9 fL (9.4-12.3); Monocytes Absolute Auto 0.7 X10*3/uL (0.1-1.2); Monocytes Percent Auto 8.4 % (2-11); Neutrophils Absolute Auto 3.4 x10*3/uL (2.0-8.3); Neutrophils Percent Auto 43.4 % (45-73); Platelet Count 298 X10*3/uL (160-400); Red Blood Count 4.28 X10*6/uL (4.20-5.50); Red Cell Distribution Width 16.4 % (11.0-16.0); White Blood Count 7.9 X10*3/uL (4.8-10.8)
[2022-04-05 17:39] LABS: INTERNATIONAL NORM RATIO 0.9 (0.9-1.1); Prothrombin Time 10.5 SEC (10.0-13.1)
[2022-04-05 17:42] LABS: Partial Thromboplastin Time 34.3 SEC (26.0-36.4)
[2022-04-05 17:48] LABS: Alanine Aminotransferase 19 U/L (0-31); Albumin Level 4.1 g/dL (3.5-5.0); Alkaline Phosphatase 84 U/L (39-117); Anion Gap 16 (12-20); Aspartate Amino Transferase 18 U/L (5-31); Bilirubin Direct 0.2 mg/dL (0.0-0.5); Bilirubin Total 0.5 mg/dL (0.0-1.0); Blood Urea Nitrogen 13 mg/dL (9-16); Calcium 8.8 mg/dL (8.4-10.2); Carbon Dioxide 22 mmol/L (22-29); Chloride 110 mmol/L (96-108); Creatinine Clr Calc Pharmacy 65.5; Estimated Glomerular Filt Rate > 60; Glucose Random 89 mg/dL (60-115); Potassium 3.8 mmol/L (3.3-5.1); Sodium 144 mmol/L (135-145); Total Protein 6.8 g/dL (6.5-8.0)
[2022-04-05 17:54] LABS: B Type Natriuretic Peptide 24 pg/mL (<100)
== END 2022-04-05 18:22 | disposition home or self-care (01) ==
PROVIDERS: Physician Assistant; Emergency Provider Emergency Medicine Emergency Medical Services; PCP Internal Medicine Geriatric Medicine
DX: R60.0 Localized edema (principal); M79.662 Pain in left lower leg; M79.661 Pain in right lower leg; I10 Essential (primary) hypertension; E78.5 Hyperlipidemia, unspecified; E66.9 Obesity, unspecified; Z68.38 Body mass index [BMI] 38.0-38.9, adult; Z79.02 Long term (current) use of antithrombotics/antiplatelets; Z79.899 Other long term (current) drug therapy
CPT/HCPCS: 36415; 80048; 80076; 83880; 85025; 85610; 85730; 93970; 99282; 99284

== ENCOUNTER 2022-07-04 13:40 | Outpatient (REF) | payer MEDICARE, MEDICAID, SELFPAY ==
--- NOTE | ~2022-07-04 | XR_ITS ---
EXAMINATION: XR lumbar spine 2-3V CLINICAL INFORMATION: Reason for Exam DORSAIGIA COMPARISON: None TECHNIQUE: 3 views of the lumbar spine FINDINGS: 5 nonrib-bearing lumbar-type vertebral bodies. Vertebral body heights are maintained. Minimal retrolisthesis of L4 on L5. There is disc space narrowing and osteophytosis at L2/L3. Paravertebral soft tissues are unremarkable. XR/XR lumbar spine 2-3V IMPRESSION: 1. Mild spondylosis of the lumbar spine, as above detailed. 2. No significant spondylolisthesis.
== END 2022-07-04 13:41 | disposition home or self-care (01) ==
LOC: HO.XRAY 13:40
PROVIDERS: PCP Internal Medicine Geriatric Medicine; Visit Provider Internal Medicine Geriatric Medicine
DX: M54.9 Dorsalgia, unspecified (principal)
CPT/HCPCS: 72100

== ENCOUNTER 2023-03-02 09:21 | Outpatient (REF) | payer OTHER, MEDICAID, SELFPAY ==
--- NOTE | ~2023-03-02 | XR_ITS ---
EXAMINATION: XR SHOULDER, RIGHT CLINICAL INFORMATION: Reason for Exam CHRONIC RIGHT SHOULDER PAIN COMPARISON: None TECHNIQUE: Four views of the shoulder. FINDINGS: No acute fracture or dislocation. Mild degenerative changes of the acromioclavicular joint with degenerative spurring. Soft tissues are unremarkable. XR/XR shoulder RT min 2V IMPRESSION: * Mild degenerative changes of the shoulder.
[2023-03-02 11:45] LABS: Alanine Aminotransferase 24 U/L (0-31); Alkaline Phosphatase 90 U/L (39-117); Anion Gap 14 (12-20); Aspartate Amino Transferase 22 U/L (5-31); Bilirubin Total 0.6 mg/dL (0.0-1.0); Blood Urea Nitrogen 15 mg/dL (9-16); Calcium 9.6 mg/dL (8.4-10.2); Carbon Dioxide 25 mmol/L (22-29); Chloride 109 mmol/L (96-108); Estimated Glomerular Filt Rate > 60; Glucose Random 86 mg/dL (60-115); Potassium 3.8 mmol/L (3.3-5.1); Sodium 144 mmol/L (135-145); Total Protein 7.3 g/dL (6.5-8.0)
[2023-03-02 11:55] LABS: Vitamin D 25-OH Total 45.6 ng/mL (>30)
== END 2023-03-02 09:22 | disposition home or self-care (01) ==
LOC: HO.LAB 09:21
PROVIDERS: PCP Internal Medicine Geriatric Medicine; Visit Provider Internal Medicine Geriatric Medicine
DX: M25.511 Pain in right shoulder (principal); G89.29 Other chronic pain; I10 Essential (primary) hypertension; R19.7 Diarrhea, unspecified; R52 Pain, unspecified
CPT/HCPCS: 36415; 73030; 80053; 82306; 82550; 84443; 85025; 85652

== ENCOUNTER 2023-03-29 13:57 | Outpatient (AMB) | payer OTHER, SELFPAY ==
--- NOTE | 2023-03-29 14:00 | A.OFFVIS_ITS ---
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 Patient reports that she has had ongoing right shoulder pain for about 4 months now. She denies any previous treatment. She has numbness and tingling in the fingers of the right hand. She has increased pain with motions above the head like brushing her hair, and while pulling up her pants.Pain is also felt while sleeping. She is taking ibuprofen for her pain which does not help. 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 She complains of pain with daily activity, worse with overhead activity, at night, or with pulling/lifting activities such as pulling up her pants. She denies any prior treatment, and finds no relief from Ibuprofen. [facility] Medical History Asthma Environmental allergies GERD (gastroesophageal reflux disease) Hyperlipidemia Hypertension Hypothyroidism MDD (major depressive disorder) Obesity Surgical History History of laparoscopic cholecystectomy (~2018) Review of Systems Const All systems reviewed & are unremarkable except as noted in HPI and below Physical Exam Const General: no acute distress, alert and awake Orientation/consciousness: patient oriented x3 HEENT Head: Yes normocephalic and Yes atraumatic Eyes EOM: EOMs intact bilaterally Resp Effort & Inspection: normal respiratory effort and able to speak in complete sentences Cardio Jugular venous distension: no JVD Skin General skin exam: turgor normal Rashes: no rashes Neuro General: patient oriented x3 Extrem Other: Right Shoulder: + H&N - empty can Full ROM Psych Appearance: grossly normal Affect: normal affect Attitude: cooperative Office Procedures Joint Injection/Drain Joint Injection/Drain Details: Injected 1 mL of Decadron and 3 mL 1% lidocaine and 3 mL of 0.25% Marcaine. Site was prepped using aseptic technique. Patient tolerated the procedure well. Primary Site: right shoulder Approach Used: posterolateral Coding 04561 - Large joint Procedure code (CPT) selection complete Results Reviewed Results Reviewed: 03/29/23 14:14 BUPivacaine MPF 0.25 % [Sensorcaine-MPF 0.25% 10 ML] 10 ml .ROUTE .STK-MED ONE Lidocaine HCl 2 % MPF [Xylocaine 2 % MPF] 5 ml .ROUTE .STK-MED ONE dexAMETHasone sod phosphate [Decadron] 4 mg .ROUTE .STK-MED ONE I personally reviewed relevant radiographs. ? Mild degenerative changes of the shoulder. Assessment & Plan Assessment & Plan (1) Impingement syndrome of right shoulder: Code(s): M75.41 - Impingement syndrome of right shoulder Plan: This is a 67 year old woman with right shoulder impingement. She has pain with daily activity, worse with overhead activities and at night. She finds no relief from Ibuprofen and denies any other treatment. I discussed her diagnosis and treatment options. I recommend PT & NSAIDs. I injected her right shoulder today, which she tolerated well, and she was given a handout for shoulder exercises. She can follow up prn. Plan Scribed for Emil Shay MD by Boby Fox, medical/surgery registered nurse, on 03/29/23 at 2:15 PM, EST. Coding Level of Care Code New Pt Level 3 (61221) Diagnoses Impingement syndrome of right shoulder M75.41 CPT Codes Coding - 86056 Large joint: 19672 - Large joint ([id number])
== END 2023-03-29 15:08 | disposition home or self-care (01) ==
PROVIDERS: PCP Internal Medicine Geriatric Medicine; Visit Provider Orthopaedic Surgery
DX: M75.41 Impingement syndrome of right shoulder (principal)
CPT/HCPCS: 20610; 99203

== ENCOUNTER → 2023-03-29 13:57 | Outpatient (BNVA) | payer OTHER, MEDICAID, SELFPAY | PROVIDERS: PCP Internal Medicine Geriatric Medicine; Visit Provider Orthopaedic Surgery | DX: M75.41 Impingement syndrome of right shoulder (principal) | CPT/HCPCS: 20610; 99202; J1100 ==

== ENCOUNTER 2023-12-12 10:06 | Outpatient (REF) | payer OTHER, SELFPAY ==
[2023-12-12 11:43] LABS: Basophils Absolute Auto 0.1 X10*3/uL (0.0-0.2); Basophils Percent Auto 0.8 % (0-2); Eosinophils Absolute Auto 0.4 X10*3/uL (0.0-0.4); Eosinophils Percent Auto 4.1 % (0-4); Hematocrit 43.7 % (37.0-47.0); Hemoglobin 14.1 g/dl (12.0-16.0); Imm Gran Abs Auto 0.06 X10*3/uL (0.00-0.03); Imm Gran Pct Auto 0.6 % (0.0-0.4); Lymphocytes Absolute Auto 5.5 X10*3/uL (1.2-4.9); Lymphocytes Percent Auto 53.4 % (20-40); MANUAL DIFF FLAG SCAN; Mean Corpuscular HGB Conc 32.3 g/dl (31.0-35.0); Mean Corpuscular Hemoglobin 29.3 pg (27.0-33.0); Mean Corpuscular Volume 90.9 fL (80.0-98.0); Mean Platelet Volume 10.6 fL (9.4-12.3); Monocytes Absolute Auto 0.8 X10*3/uL (0.1-1.2); Monocytes Percent Auto 8.1 % (2-11); Neutrophils Absolute Auto 3.4 x10*3/uL (2.0-8.3); Platelet Count 286 X10*3/uL (160-400); Red Blood Count 4.81 X10*6/uL (4.20-5.50); SCAN SMEAR FLAG 1; White Blood Count 10.3 X10*3/uL (4.8-10.8)
[2023-12-12 12:09] LABS: SLIDE REVIEW VERIFIED
[2023-12-12 12:12] LABS: Alanine Aminotransferase 20 U/L (0-31); Albumin Level 3.9 g/dL (3.5-5.0); Alkaline Phosphatase 95 U/L (39-117); Anion Gap 12 (12-20); Aspartate Amino Transferase 17 U/L (5-31); Bilirubin Total 0.4 mg/dL (0.0-1.0); Blood Urea Nitrogen 17 mg/dL (9-16); Calcium 9.2 mg/dL (8.4-10.2); Carbon Dioxide 26 mmol/L (22-29); Chloride 109 mmol/L (96-108); Estimated Glomerular Filt Rate 58; Glucose Random 80 mg/dL (60-115); Potassium 4.2 mmol/L (3.3-5.1); Sodium 143 mmol/L (135-145); Total Protein 7.3 g/dL (6.5-8.0)
== END 2023-12-12 10:07 | disposition home or self-care (01) ==
LOC: HO.HHCL 10:06
PROVIDERS: Visit Provider Internal Medicine Geriatric Medicine
DX: R56.9 Unspecified convulsions (principal)
CPT/HCPCS: 36415; 80053; 85025

== ENCOUNTER 2024-03-12 09:18 | Outpatient (REF) | payer OTHER, SELFPAY ==
--- NOTE | ~2024-03-12 | CT_ITS ---
EXAMINATION: CT HEAD WITHOUT CONTRAST CLINICAL INFORMATION: Seizure disorder. COMPARISON: No prior available. TECHNIQUE: Contiguous axial imaging was performed from the skull base to vertex without intravenous administration of contrast. This CT examination was performed using dose optimization techniques as appropriate, variously including the following: *Automated exposure control *Adjustment of mA and/or kV according to patient size (this includes techniques or standardized protocols for targeted exams where dose is matched to indication/reason for exam; i.e. extremities or head) *Use of iterative reconstruction technique DLP: 803 mGy-cm FINDINGS: There is no evidence of intracranial hemorrhage or extra-axial fluid collection. There is no mass effect, or edema. No CT evidence of acute territorial infarct. Ventricles, sulci, and cisterns are normal in size and configuration for patient age. No hydrocephalus. No midline shift. Mild low-attenuation white matter changes are noted, in keeping with small vessel ischemic changes. Empty sella noted. Mild atheromatous calcification of the bilateral carotid siphons and V4 segments vertebral arteries bilaterally. Globes and orbital contents image normally. There are bilateral lens implants. No extracranial soft tissue abnormalities. The paranasal sinuses, mastoid air cells, and tympanic cavities are normally aerated. No suspicious bony abnormalities. Skull and skull base appear normal. Mild degenerative changes are noted in both TM joints. CT/CT head/brain wo IV con IMPRESSION: No acute intracranial abnormality.
== END 2024-03-12 09:19 | disposition home or self-care (01) ==
LOC: HO.CT 09:18
PROVIDERS: Visit Provider Internal Medicine Geriatric Medicine
DX: R56.9 Unspecified convulsions (principal)
CPT/HCPCS: 70450

== ENCOUNTER → 2024-03-12 09:20 | Outpatient (BNV) | payer OTHER, SELFPAY | PROVIDERS: Visit Provider Radiology Diagnostic Radiology | DX: R56.9 Unspecified convulsions (principal) | CPT/HCPCS: 70450 ==

== ENCOUNTER 2024-07-28 15:48 | Outpatient (REF) | payer OTHER, SELFPAY ==
[2024-07-28 18:29] LABS: TSH reflex Free T4 1.65 uIU/mL (0.32-4.0)
== END 2024-07-28 15:49 | disposition home or self-care (01) ==
LOC: HO.HHCL 15:48
PROVIDERS: Visit Provider Internal Medicine Geriatric Medicine
DX: R63.5 Abnormal weight gain (principal)
CPT/HCPCS: 36415; 84443

== ENCOUNTER 2024-10-27 10:37 | Outpatient (REF) | payer OTHER, SELFPAY ==
[2024-10-27 12:05] LABS: Anion Gap 12 (12-20); Blood Urea Nitrogen 13 mg/dL (9-16); Calcium 9.2 mg/dL (8.4-10.2); Carbon Dioxide 22 mmol/L (22-29); Chloride 113 mmol/L (96-108); Estimated Glomerular Filt Rate > 60; Glucose Random 97 mg/dL (60-115); Potassium 3.5 mmol/L (3.3-5.1); Sodium 143 mmol/L (135-145)
--- OUTSIDE RECORDS SUMMARY | 2024-10-27 12:24 | XMS_ITS | Encounter Summary ---
Author Organization [employer] Address [address] [place] [address] Care Team Providers Care Impregnating Helper Name Role Phone Name, Kevin BIRD Primary Care Provider Reason for Visit * Reason Onset Date Comments APPT request 10/18/2024 Encounter Details Date Type Department Care Team ([facility] st Contact Info) Description 10/18/2024 Telephone [facility] [address] [place], [place] [phone] Name, MD Kevin [address] [place] [address] APPT request Social History Tobacco Use Types Packs/Day Years Used Date Smoking Tobacco: Former Cigarettes Passive Smoke Exposure: Past Smokeless Tobacco: Never Alcohol Use Standard Drinks/Week Comments Never 0 (1 standard drink = 0.6 oz pur e alcohol) Depression Answer Date Recorded Patient Health Questionnaire-9 Score 22 09/25/2023 Patient Health Questionnaire-9 Score 22 09/25/2023 Last PHQ-9: Questionnaire Data Not on file 0 09/25/2023 Housing Stability Answer Date Recorded What is your housing situation today? I have sarah estrada 07/28/[address] you li ve. Do you have problems with any of the following? None of the above 07/28/2024 Food Insecurity Answer Date Recorded Within the past 12 months, y ou worried that your food would run out before you got money to buy more: Never True 07/28/2024 Within the past 12 months,th e food you bought just didn't last and you didn't have enough money to get more: Never True 09/2023 Transportation Answer Date Recorded In the past 12 months, has l ack of transportation kept you from medical appts, meetings, work or from getting things needed for daily living? No 07/28/2024 Utilities Answer Date Recorded In the past 12 months, has t he electric, gas, oil or water company threatened to shut off services in your home? No 07/28/2024 Depression Answer Date Recorded Patient Health Questionnaire-2 Score 6 09/25/2023 Internet Access Answer Date Recorded Internet Access Q1 Yes 07/28/2024 Internet Access Q2 Not on file 07/28/2024 Comments Unknown Sex and Gender Information Value Date Recorded Sex Assigned at Female 06/26/2022 10:29 AM EDT Legal Sex Female 10:29 AM EDT Gender Identity Female 06/26/2022 10:29 AM EDT Sexual Orientation Choose not to disclose 2023 1:10 PM EST Sexual Orientation Straight 09/27/2023 1: 10 PM EST documented as of this encounter Miscellaneous Notes * Telephone Encounter - Cinthya Figueroa [place] - 10/18/2024 11:32 AM EST T/C to pt regarding appt request spoke to pts sister Rachel Knight who agree to an appt for 10/27/24 at 10:15am. documented in this encounter Plan of Treatment Upcoming Encounters Date Type Department Care Team (Late st Contact Info) Description 10/31/2024 10:30 AM EST Telemedicine [facility] [address] [place] [phone] Kristina Elaine RN 01/28/2025 10:30 AM EDT Office Visit [facility] [address] [place] [phone] Name, MD Kevin [address] [place] [phone] documented as of this encounter Goals Goal Patient Goal Type Associated Problems Recent Progress Patient-Stated? Author Blood Pressure < 140/90 Blood Pressure 121/67( 025 10:10 AM EST) No Maya Harris, PharmD Record your blood pressure once per day Blood Pressure No Maya Harris PharmD documented as of this encounter Visit Diagnoses Not on filedocumented in this encounter Additional Health Concerns Assessment Noted Time PHQ-9 Depression Total Score: 22 024 11:41 AM EST documented as of this encounter Care Teams Impregnating Helper Relationship Specialty Start Date End Date Name, MD Kevin [address] [place] [address] PCP - General Family Medicine 08/27/18 documented as of this encounter
--- OUTSIDE RECORDS SUMMARY | 2024-10-27 12:24 | XMS_ITS | Encounter Summary ---
Author Organization [employer] [facility] Address [address] [place] [address] [place] [address] Care Team Providers Care Sewing Machine Operator Name Role Phone Name, Kevin BIRD Primary Care Provider [phone] Maya Harris PharmD Unavailable Encounter Details Date Type Department Care Team (Late st Contact Info) Description 01/26/[address] [phone] Kevin Stone MD [address] [place] [id number] Social History Tobacco Use Types Packs/Day Years Used Date Smoking Tobacco: Never Assessed Comments Unknown Sex and Gender Information Value Date Recorded Sex Assigned at Female 06/26/2022 10:29 AM EDT Legal Sex Female 10:29 AM EDT Gender Identity Female 06/26/2022 10:29 AM EDT Sexual Orientation Choose not to disclose 2023 1:10 PM EST Sexual Orientation Straight 09/27/2023 1: 10 PM EST documented as of this encounter Plan of Treatment Upcoming Encounters Date Type Department Care Team (Late st Contact Info) Description 10/31/2024 10:30 AM EST Telemedicine [address] [phone] Kristina Elaine RN 01/28/2025 10:30 AM EDT Office Visit [address] [phone] Kevin Stone MD [address] [place] [address] [phone] documented as of this encounter Procedures Procedure Name Priority Date/Time Associated Diagnosis Comments COLONOSCOPY Routine 12/12/2012 12:52 PM EDT documented in this encounter Results * Hm Colonoscopy (12/12/2012 12:52 PM EDT) Colonoscopy Normal Normal Narrative Lisbeth Julio - 12/12/2012 12:52 PM EDT Recommended 10 year follow up us Historical Provider [facility] MAINTENANCE Edited Result - Final documented in this encounter Visit Diagnoses Not on filedocumented in this encounter Care Teams Sewing Machine Operator Relationship Specialty Start Date End Date Name, MD Kevin [address] [place] [address] PCP - General Family Medicine 08/27/18 Maya Harris, GinnyD [address] [place] [address] Pharmacist Internal Medicine 05/25/23 11/05/23 documented as of this encounter
--- OUTSIDE RECORDS SUMMARY | 2024-10-27 12:24 | XMS_ITS | Encounter Summary ---
Author Organization [employer] Address [address] [facility] 7t [place] [address] Care Team Providers Care Senior Linux Systems Engineer Name Role Phone Name, Kevin BIRD Primary Care Provider Encounter Details Date Type Department Care Team (Latest Contact Info) Description 10/27/2024 Travel Social History Tobacco Use Types Packs/Day Years Used Date Smoking Tobacco: Former Cigarettes Passive Smoke Exposure: Past Smokeless Tobacco: Never Alcohol Use Standard Drinks/Week Comments Never 0 (1 standard drink = 0.6 oz pur e alcohol) Depression Answer Date Recorded Patient Health Questionnaire-9 Score 5 10/27/2024 Patient Health Questionnaire-9 Score 5 10/27/2024 Last PHQ-9: Questionnaire Data Not on file 0 10/27/2024 Housing Stability Answer Date Recorded What is [...] Answer Date Recorded Patient Health Questionnaire-2 Score 0 10/27/2024 Internet Access Answer Date Recorded Internet Access [...] Info) Description 10/31/2024 10:30 AM EST Telemedicine [facility] MEDICINE [address] [place] [phone] Kristina Elaine RN 01/28/2025 10:30 AM EDT Office Visit [address] [address] Name, MD Kevin [address] [place] [address] documented as of this encounter Goals Goal Patient Goal Type Associated Problems Recent Progress Patient-Stated? Author Blood Pressure < 140/90 Blood Pressure 121/67( 025 10:10 AM EST) No Puia, Maya, PharmD Record your blood pressure once per day Blood Pressure No Puia, Maya, PharmD documented as of this encounter Visit Diagnoses Not on filedocumented in this encounter Additional Health Concerns Assessment Noted Time PHQ-9 Depression Total Score: 5 10/28/19 25 10:41 AM EST documented as of this encounter Care Teams Senior Linux Systems Engineer Relationship Specialty Start Date End Date Kevin Stone MD [address] [place] [address] PCP - General Family Medicine 08/27/18 documented as of this encounter
--- OUTSIDE RECORDS SUMMARY | 2024-10-27 12:24 | XMS_ITS | Encounter Summary ---
Author Organization [employer] [facility] Address [address] [place] [address] 7t [place] [address] Care Team Providers Care Training Intern Name Role Phone Name, Kevin BIRD Primary Care Provider [phone] Maya Harris PharmD Unavailable [phone] Encounter Details Date Type Department Care Team (Late st Contact Info) Description 09/14/2022 Orders Only [facility] MEDICINE [address] [place] [id number] Lillian Mackenzie LPN Social History Tobacco Use Types Packs/Day Years [...] Info) Description 10/31/2024 10:30 AM EST Telemedicine [address] [phone] Kristina Elaine RN 01/28/2025 10:30 AM EDT Office Visit [address] [phone] Name, MD Kevin [address] [place] [phone] documented as of this encounter Visit Diagnoses Not on filedocumented in this encounter Care Teams Training Intern Relationship Specialty Start Date End Date Name, MD Kevin [address] [place] [address] PCP - General Family Medicine 08/27/18 Maya Harris PharmD [address] [place] [address] Pharmacist Internal Medicine 05/25/23 11/05/23 documented as of this encounter
--- OUTSIDE RECORDS SUMMARY | 2024-10-27 12:24 | XMS_ITS | Encounter Summary ---
Author Organization [employer] Address [address] [facility] 7t [place] [address] Care Team Providers Care Edge Runner Name Role Phone Name, Kevin BIRD Primary Care Provider [phone] Maya Harris PharmD Unavailable [phone] Reason for Visit * Reason Comments Med Refill Encounter Details Date Type Department Care Team ([facility] st Contact Info) Description 06/20/[address] [facility] MEDICINE [address] [place], [place] [phone] Name, MD Kevin [address] [place], [place] [phone] Social History Tobacco Use Types Packs/Day Years Used Date Smoking Tobacco: Never Smokeless Tobacco: Never Alcohol Use Standard Drinks/Week Comments Never 0 (1 standard drink = 0.6 oz pur e alcohol) Depression Answer Date Recorded Patient Health Questionnaire-9 Score 21 02/28/2023 Housing Stability Answer Date Recorded What is your housing situation today? I have sarah estrada 06/15/[address] you li ve. Do you have problems with any of the following? None of the above 06/15/2023 Food Insecurity Answer Date Recorded Within the past 12 months, y ou worried that your food would run out before you got money to buy more: Never True 06/15/2023 Within the past 12 months,th e food you bought just didn't last and you didn't have enough money to get more: Never True Transportation Answer Date Recorded In the past 12 months, has l ack of transportation kept you from medical appts, meetings, work or from getting things needed for daily living? No 06/15/2023 Utilities Answer Date Recorded In the past 12 months, has t he electric, gas, oil or water company threatened to shut off services in your home? No 06/15/2023 Depression Answer Date Recorded Patient Health Questionnaire-2 Score 6 02/28/2023 Comments Unknown Sex and Gender Information Value [...] 10/31/2024 10:30 AM EST Telemedicine [facility] MEDICINE [address] [place] [phone] Kristina Elaine RN 01/28/2025 10:30 AM EDT Office Visit [facility] MEDICINE [address] [place] [address] Name, MD Kevin [address] [place] [address] documented as of this encounter Goals Goal [...] Assessment Noted Time PHQ-9 Depression Total Score: 21 023 2:20 PM EDT documented as of this encounter Care Teams Edge Runner Relationship Specialty Start Date End Date Kevin Stone MD [address] [place] [address] PCP - General Family Medicine 08/27/18 Puia, Maya, PharmD [address] [place] [address] Pharmacist Internal Medicine 05/25/23 11/05/23 documented as of this encounter
--- OUTSIDE RECORDS SUMMARY | 2024-10-27 12:24 | XMS_ITS | Encounter Summary ---
Author Organization [facility] Address [address] [place] [address] 7t [place] [address] Care Team Providers Care Data Science And Iot Manager Name Role Phone Name, Kevin BIRD Primary Care Provider [phone] Maya Harris PharmD Unavailable [phone] Encounter Details Date Type Department Care Team (Late st Contact Info) Description 10/03/2022 Orders Only [facility] CHC MED & PEDS [address] [place] [address] Gaby Quiles LPN Social History Tobacco Use Types Packs/Day [...] Info) Description 10/31/2024 10:30 AM EST Telemedicine [facility] MEDICINE [address] [place] [address] [phone] Kristina Elaine RN 01/28/2025 10:30 AM EDT Office Visit [address] [phone] Name, MD Kevin [address] [place] [address] documented as of this encounter Visit Diagnoses Not on filedocumented in this encounter Care Teams Data Science And Iot Manager Relationship Specialty Start Date End Date Name, MD Kevin [address] [place] [address] PCP - General Family Medicine 08/27/18 Maya Harris, Kyaw [address] [place] [address] Pharmacist Internal Medicine 05/25/23 11/05/23 documented as of this encounter
--- OUTSIDE RECORDS SUMMARY | 2024-10-27 12:24 | XMS_ITS | Encounter Summary ---
Author Organization [employer] Address [address] [facility] 7t [place] [address] Care Team Providers Care Viscosity Inspector Name Role Phone Name, Kevin BIRD Primary Care Provider [phone] Reason for Visit * Reason Onset Date Comments chartprep 10/22/2024 Encounter Details Date Type Department Care Team ([facility] st Contact Info) Description 10/22/2024 Telephone [facility] CHC MED & PEDS [address] [place], [place] [phone] Name, MD Kevin [address] [place] [address] chartprep Social History Tobacco Use Types Packs/Day Years [...] encounter Miscellaneous Notes * Telephone Encounter - Lakia Orellana MA - 10/22/2024 1:07 PM EST Chart Prep Labs: not applicable Images: not applicable Vaccines due: yes Rsv, and zoster. Referrals: not applicable Screenings: colonoscopy , mammogram Overdue care gaps: PHQ-9, GAD7 documented in this encounter Plan of Treatment Upcoming Encounters Date Type Department Care Team (Late st Contact Info) Description 10/31/2024 10:30 AM EST Telemedicine [facility] MEDICINE [address] [place] [phone] Kristina Elaine RN 01/28/2025 10:30 AM EDT Office Visit [facility] MEDICINE [address] [place] [phone] Name, MD Kevin [address] [place] [address] documented as of this encounter Goals Goal [...] documented as of this encounter Care Teams Viscosity Inspector Relationship Specialty Start Date End Date Name, MD Kevin [address] [place] [address] PCP - General Family Medicine 08/27/18 documented as of this encounter
--- OUTSIDE RECORDS SUMMARY | 2024-10-27 12:24 | XMS_ITS | Clinical Summary ---
Author Organization [facility] Address [address] [place] [phone] Care Team Providers Care Lace And Textiles Restorer Name Role Phone Name, Kevin BIRD Primary Care Provider [phone] Surgical History Surgery Date Site/Laterality Comments HYSTERECTOMY PROCEDURE: HISTORICAL HYSTERECTOMY; COMMENT: right ovary retained, in 1999, for prolapsed uterus COLONOSCOPY 11/25/2012 PROCEDURE: SD COLONOSCOPY FLX DX W/COLLJ SPEC WHEN PFRMD; COMMENT: normal BREAST BIOPSY Bilateral PROCEDURE: BX BREAST; PERC NEEDLE CORE W/IMAG GUID Medical History Medical History Date Comments Asthma DX:Asthma Fibromyalgia DX:Fibromyalgia Rheumatoid arthritis(714.0) DX:R heumatoid arthritis(714.0) Migraine DX:Migraine Hypertension DX:Hypertension Hypothyroidism DX:Hypothyroidis m Anxiety and depression DX:Anxiet y and depression Family History Medical History Relation Name Comments Stroke Father of a strok e Hyperlipidemia Mother Hypertension Mother Hypertension Sister 1 Relation Name Status Comments Father Mother Alive HTN Sister 1 Sister 2 Alive HTN Social History Tobacco Use Types Packs/Day Years Used Date Smoking Tobacco: Former Cigarettes Q uit: 06/23/2013 Smokeless Tobacco: Former Quit: 06/23/2013 Alcohol Use Standard Drinks/Week Comments Yes 0 (1 standard drink = 0.6 oz pur e alcohol) Comments Unknown Sex and Gender Information Value Date Recorded Sex Assigned at Not on file Legal Sex Female 12:17 AM EST Gender Identity Not on file Sexual Orientation Not on file Obstetrics History Plan of Treatment Health Maintenance Due Date Last Done Comments Breast Cancer Screening 1955 Pneumococcal Vaccine: 50+ Years (1 of 2 - PCV) 1975 Zoster Vaccines (1 of 2) 2006 RSV Immunization Patients 60 + Years Old (1 - Risk 60-74 years 1-dose series) 2016 Colorectal Cancer Screening: Colonoscopy 08/09/2022 Depression Screening 08/09/2022 Falls Risk Assessment 08/09/2022 Hepatitis C Screening 08/09/2022 Osteoporosis Screening (Bone Density Screening) 08/09/2022 Social Influencers of Health Screening 08/09/2022 DTaP,Tdap,and Td Vaccines (2 - Td or Tdap) 11/14/2022 11/14/2012 COVID-19 Vaccine (1 - 2023-2 5 season) 2024 Influenza Vaccine (#1) 2024 5, 06/26/2014, 05/27/2012 HIB Vaccines Aged Out No longer eligi ble based on patient's age to complete this topic HPV Vaccines Aged Out No longer eligi ble based on patient's age to complete this topic Hepatitis A Vaccines Aged Out No long er eligible based on patient's age to complete this topic Hepatitis B Vaccines Aged Out No long er eligible based on patient's age to complete this topic IPV Vaccines Aged Out No longer eligi ble based on patient's age to complete this topic MMR Vaccines Aged Out No longer eligi ble based on patient's age to complete this topic Meningococcal ACWY Vaccine Aged Out N o longer eligible based on patient's age to complete this topic Meningococcal B Vacine Aged Out No lo nger eligible based on patient's age to complete this topic RSV Immunization Patients Under 20 months Aged Out No longer eligible b ased on patient's age to complete this topic Varicella Vaccines Aged Out No longer eligible based on patient's age to complete this topic Advance Directives Documents on File Type Date Recorded Patient Supervisor Waterproofing Expl anation Health Care Decision (hx) 04/18/2024 CLAIR LEÓN DIRECTIVE Care Teams Lace And Textiles Restorer Relationship Specialty Start Date End Date Name, MD Kevin [address] [place], [place] PCP - General Internal Medicine 06/10/12
--- OUTSIDE RECORDS SUMMARY | 2024-10-27 12:24 | XMS_ITS | Encounter Summary ---
Author Organization [employer] Address [address] [facility] 7t [place] [address] Care Team Providers Care Study Director Name Role Phone Name, Kevin BIRD Primary Care Provider [phone] Reason for Visit * Reason Onset Date Comments Call back requested. 10/17/2024 Encounter Details Date Type Department Care Team ([facility] st Contact Info) Description 10/17/2024 Telephone [facility] MEDICINE [address] [place], [place] [phone] Name, MD Kevin [address] [place] [address] Call back requested. Social History Tobacco Use Types Packs/Day Years [...] encounter Miscellaneous Notes * Telephone Encounter - Khris Syed - 10/17/2024 2:58 PM EST Tc from pt requesting a call back. Patient stated she was informed by MA that she would get a call for October to get booked in to discuss a medication. (Patient not aware of the name of the medication) Midwife advised there are no recalls indicating PCP would like to see pt for October. Therefore , database report writer is unable to book appt and would need to forward to team KELSEY. Patient expressed frustration and stated she cannot see doctor only 4x a year. Please contact pt at [phone]. documented in this encounter Plan of Treatment Upcoming Encounters Date Type Department Care Team (Late st Contact Info) Description 10/31/2024 10:30 AM EST Telemedicine [facility] MEDICINE [address] [place] [phone] Kristina Elaine RN 01/28/2025 10:30 AM EDT Office Visit [facility] MEDICINE [address] [place] [address] Name, MD Kevin [address] [place] [phone] documented as of this encounter Goals Goal Patient Goal Type Associated Problems Recent Progress Patient-Stated? Author Blood Pressure < 140/90 Blood Pressure 121/67( 025 10:10 AM EST) No Maya Harris, PharmD Record your blood pressure once per day Blood Pressure No Maya Harris, PharmD documented as of this encounter Visit Diagnoses Not on filedocumented in this encounter Additional Health Concerns Assessment Noted Time PHQ-9 Depression Total Score: 22 024 11:41 AM EST documented as of this encounter Care Teams Study Director Relationship Specialty Start Date End Date Name, MD Kevin [address] [place] [address] PCP - General Family Medicine 08/27/18 documented as of this encounter
--- OUTSIDE RECORDS SUMMARY | 2024-10-27 12:24 | XMS_ITS | Clinical Summary ---
Author Organization [employer] Address [address] [facility] [address] [place] [address] Care Team Providers Care Directional Drill Operator Name Role Phone Name, Kevin BIRD Primary Care Provider [phone] Allergies Active Allergy Reactions Criticality Noted Date Comments Morphine Unknown 06/26/2016 Medications cholecalciferol (Vitamin D3) 25 MCG (1000 UT) tabletIndication s:Asthma, unspecified asthma severity, unspecified whether complicated, unspecified whether persistent TAKE 2 TABLETS BY MOUTH EVERY DAY 180 tablet 1 05/16/20 23 Active lidocaine (Lidoderm) 5 % patch APPLY 1 PATCH TOPICALLY TO SKIN, LEAVE ON FOR 12 HOURS AND OFF FOR 12 HOURS DIRECTED 30 patch 08/23/20 23 Active amLODIPine-valsa rtan (Exforge) 10-320 MG tabletIndication s:Essential hypertension,All ergic rhinitis, unspecified seasonality, unspecified trigger Take 1 tablet by mouth in the morning. 30 tablet 11 11/07/19 24 025 Active Acetaminophen Extra Strength 500 MG tabletIndication s:Dysphonia TAKE 1 TABLET BY MOUTH TWICE DAILY 60 tablet 03/11/20 24 Active cetirizine (ZyrTEC) 10 MG tabletIndication s:Essential hypertension,All ergic rhinitis, unspecified seasonality, unspecified trigger TAKE 1 TABLET BY MOUTH EVERY DAY IN THE MORNING 30 tablet 2 05/19/20 24 Active levothyroxine (Synthroid, Levoxyl) 88 MCG tabletIndication s:Asthma, unspecified asthma severity, unspecified whether complicated, unspecified whether persistent TAKE 1 TABLET BY MOUTH EVERY DAY 90 tablet 1 06/25/20 24 Active albuterol (Ventolin HFA) 108 (90 Base) MCG/ACT inhalerIndicatio ns:Asthma with COPD ([facility]) INHALE 2 PUFFS BY MOUTH EVERY 4 TO 6 HOURS NEEDED 18 g 1 07/29/20 24 Active nortriptyline (Pamelor) 25 MG capsule Take 1 capsule (25 mg) by mouth at bedtime. 30 capsule 11 07/28/20 24 025 Active fluticasone (Flonase) 50 MCG/ACT nasal sprayIndications :Essential hypertension,All ergic rhinitis, unspecified seasonality, unspecified trigger INSTILL 2 SPRAYS IN EACH NOSTRIL ONCE DAILY 16 g 2 08/21/20 24 Active melatonin 5 MG tablet TAKE 1 TABLET BY MOUTH AT BEDTIME 30 tablet 6 08/28/19 25 Active Anoro Ellipta 62.5-25 MCG/ACT aerosol powder INHALE 1 PUFF BY MOUTH EVERY DAY AT THE SAME TIME 60 each 3 08/28/19 25 Active citalopram (CeleXA) 20 MG tabletIndication s:Essential hypertension TAKE 1 TABLET BY MOUTH EVERY DAY 30 tablet 6 08/28/19 25 Active omeprazole (PriLOSEC) [address] capsuleIndicatio ns:Essential hypertension TAKE 1 CAPSULE BY MOUTH EVERY DAY 30 TO 60 MINUTES BEFORE BREAKFAST, DO NOT BREAK, CRUSH, DISSOLVE OR CHEW 30 capsule 6 08/28/19 25 Active Aspirin Low Dose 81 MG EC tabletIndication s:Asthma, unspecified asthma severity, unspecified whether complicated, unspecified whether persistent TAKE 1 TABLET BY MOUTH EVERY DAY 90 tablet 1 09/22/19 25 Active atorvastatin (Lipitor) 20 MG tabletIndication s:Asthma, unspecified asthma severity, unspecified whether complicated, unspecified whether persistent TAKE 1 TABLET BY MOUTH EVERY DAY 90 tablet 1 09/22/19 25 Active montelukast (Singulair) 10 MG tabletIndication s:Asthma, unspecified asthma severity, unspecified whether complicated, unspecified whether persistent TAKE 1 TABLET BY MOUTH EVERY DAY IN THE EVENING 90 tablet 1 09/22/19 25 Active pregabalin (Lyrica) 75 MG capsule TAKE 1 CAPSULE BY MOUTH TWICE DAILY 60 capsule 09/23/19 25 Active clonazePAM (KlonoPIN) 2 MG tabletIndication s:Anxiety TAKE 1 TABLET BY MOUTH TWICE DAILY 56 tablet 10/24/19 25 Active clonazePAM (KlonoPIN) 2 MG tabletIndication s:Anxiety TAKE 1 TABLET BY MOUTH TWICE DAILY 56 tablet 09/23/19 25 025 Discontinued Active Problems Problem Noted Date Diagnosed Date Dysphonia 09/25/2023 Foot pain 02/22/2023 Fatigue 09/27/2022 Dehydration 09/27/2022 Fibromyalgia 04/06/2021 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 Dizziness 06/25/2018 Gallstone 04/24/2018 Right upper quadrant pain 04/24/2018 Age-related cataract 03/15/2018 Daytime somnolence 02/04/2018 History of lupus 07/02/2017 Essential hypertension 03/26/2017 Flushing 06/26/2016 Asthma with COPD 10/22/2015 Acquired hypothyroidism 10/22/2015 Migraine 10/22/2015 Obesity 10/22/2015 Recurrent major depression in partial remission 10/22/2015 Resolved Problems Problem Noted Date Diagnosed Date Resolved Date Dysphagia 09/25/2023 05/01/2024 Acute COVID-19 09/27/2022 05/01/2024 Finding of above normal blood pressure 04/06/2021 05/01/2024 Acute maxillary sinusitis 09/24/2018 Nausea and vomiting 03/15/2018 05/01/20 24 Diarrhea 06/26/2016 05/01/2024 Fibromyositis 10/22/2015 05/01/2024 Heartburn 10/22/2015 05/01/2024 Encounters Date Type Department Care Team Description 10/27/2024 10:15 AM EST Office Visit [facility] [address] [place] [address] [phone] Kevin Stone MD Caregiver stress (Primary Dx); Essential hypertension 10/27/2024 Travel 10/23/2024 Refill [facility] [address] [place], [place] [phone] Kevin Stone MD Anxiety 10/22/2024 Telephone [facility] [address] [place], [place] [phone] Kevin Stone MD chartprep 10/18/2024 Telephone [facility] [address] [place], [place] [phone] Kevin Stone MD APPT request 10/17/2024 Telephone [facility] [address] [place] [address] Kevin Stone MD Call back requested. 09/22/2024 Refill [facility] [place] [address] Kevin Stone MD Anxiety 09/21/2024 Refill [facility] KELSEY Ritchie [phone] Kevin Stone MD Asthma, unspecified asthma severity, unspecified whether complicated, unspecified whether persistent 08/27/2024 Refill [facility] [address] [place] [address] Kevin Stone MD Essential hypertension 08/22/2024 9:00 AM EST Telemedicine [facility] [place] [address] Kristina Elaine, RAQUEL Anxiety 08/22/2024 Refill [facility] [place] [address] Kristina Elaine, RAQUEL Anxiety 08/22/2024 Travel 08/22/2024 Telephone [facility] [place] [phone] Kristina Elaine, RN Recommend [employer] Tele Tier 2 08/21/2024 Refill [facility] [place] [address] Kevin Stone MD Essential hypertension; Allergic rhinitis, unspecified seasonality, unspecified trigger 08/07/2024 Telephone [facility] [place] [phone] Kristina Elaine, RN [employer] Renewal paperwork from Last 3 Months Immunizations Name Administration Dates Next Due Influenza High-dose Quadriva lent Preservative Free 05/17/2023,07/03/2022 Influenza injectable quadriv alent IIV4 with preservative 07/10/2017,06/26/2016 Influenza injectable quadriv alent preservative free 06/07/2021,09/29/2019 Influenza, High Dose Seasona l, Preservative Free 07/28/2024 Influenza, IIV3, injectable 07/07/2015, 4,05/27/2012 Pfizer Covid-19 Vaccine 12+ 07/28/2024 Pneumococcal Conjugate PCV 20 03/09/2023 Pneumococcal Polysaccharide PPSV23 12/01/2018 Tdap 01/07/2024,11/14/2012 Zoster, Recombinant 03/09/2023 Social History Tobacco Use Types Packs/Day Years Used Date Smoking Tobacco: Former Cigarettes Passive Smoke Exposure: Past Smokeless Tobacco: Never Tobacco Cessation:Counseling Given: Not Answered Alcohol Use Standard Drinks/Week Comments Never 0 [...] Orientation Straight 09/27/2023 1: 10 PM EST Last Filed Vital Signs Vital Sign Reading Time Taken Comments Blood Pressure 121/67 10/27/2024 10:10 AM EST Pulse 97 10/27/2024 10:10 AM EST Temperature 35.4 ??C (95.7 ??F) 10/27/2024 10:[address] Respiratory Rate 18 10/27/2024 10:10 AM EST Oxygen Saturation 98% 10/27/2024 10:10 AM EST Inhaled Oxygen Concentration - - Weight 93 kg (205 lb 1.6 oz) 10/27/2024 10:10 AM EST Height 154.9 cm (5' 1 ) 07/28/2024 3:19 PM EST Body Mass Index 38.75 07/28/2024 3:19 PM EST Plan of Treatment Upcoming Encounters Date Type Department Care Team (Late st Contact Info) Description 10/31/2024 10:30 AM EST Telemedicine [facility] [address] [place] [address] [phone] Kristina Elaine RN 01/28/2025 10:30 AM EDT Office Visit [facility] [address] [place] [address] [phone] Name, MD Kevin [address] [place] [phone] Health Maintenance Due Date Last Done Comments CT Colonography 1956 FIT DNA/Cologuard 1956 FIT 1956 FOBT 1955 Sigmoidoscopy 1956 Hepatitis C Screening 1974 RSV Patients and Patients Aged 60 years or older (1 - Risk 60-74 years 1-dose series) 2016 Colonoscopy 12/12/2022 12/12/2012 Colorectal Cancer Screening 12/12/2022 Zoster Vaccines (2 of 2) 05/04/2023 03/09/2023 Mammogram 12/24/2023 12/23/2021, 04/04/2022, 12/23/2021, Additional history exists Alcohol/Substance Use Screening 07/28/2025 07/28/2024 SDOH Screening 07/28/2025 07/28/2024 Tobacco Screening 07/28/2025 07/28/2024 Depression Screening 10/27/2025 10/27/2024, 10/28/19 Lipid Panel 02/17/2026 02/17/2021 DTaP/Tdap/Td Vaccines (3 - Td or Tdap) 01/06/2034 01/07/2024, 11/14/2012 Pneumococcal Vaccine: 50+ Years Completed 03/09/2023, 12/01/2018 COVID-19 Vaccine Completed 07/28/2024, , 02/17/2021 Influenza Vaccine Completed 07/28/2024, , 07/03/2022, Additional history exists HIB Vaccines Aged Out No longer eligi [...] patient's age to complete this topic Meningococcal Vaccine Aged Out No jameson dontrell eligible based on patient's age to complete this topic RSV under 20 months Aged Out No longe r eligible based on patient's age to complete this topic Rotavirus Vaccines Aged Out No longer eligible based on patient's age to complete this topic Goals Goal Patient Goal Type Associated Problems Recent Progress Patient-Stated? Author Blood Pressure < 140/90 Blood Pressure 121/67( 025 10:10 AM EST) No Maya Harris, PharmChuck Record your blood pressure once per day Blood Pressure No Maya Harris, PharmD Procedures Procedure Name Priority Date/Time Associated Diagnosis Comments BASIC METABOLIC PANEL Routine 10/27/2024 10:38 AM EST Essential hypertension MAMMOGRAPHY Routine 12/23/2021 LIPID PANEL, STANDARD Routine 02/17/2021 10:48 AM EDT COLONOSCOPY Routine 12/12/2012 12:52 PM EDT from Last 3 Months or Most Recently Relevant to Health Maintenance Results * (ABNORMAL) Basic Metabolic Panel (10/27/2024 10:38 AM EST) Sodium 143 135 - 145 mmol/L [facility] Potassium 3.5 3.3 - 5.1 mmol/L [facility] Chloride 113(H) 96 - 108 mmol/L [facility] Carbon Dioxide 22 22 - 29 mmol/L [facility] Anion Gap 12 12 - 20 [facility] Urea Nitrogen (BUN) 13 9 - 16 mg/dL [facility] Creatinine, Serum 0.90 0.5 - 1.4 mg/dL [facility] Estimated Glomerular Filt Rate >60 [facility] Comment:Chronic Kidney Disea se: Estimated GFR < 60 mL/min/1.41m0Xtaxty Kidney Disease: Estimated GFR < 15 mL/min/1.73m2 Glucose 97 60 - 115 mg/dL [facility] Calcium 9.2 8.4 - 10.2 mg/dL [facility] Blood Venous blood specimen / Unknown 10/27/2024 10:38 AM EST 10/27/2024 11:36 AM EST Kevin Stone MD LAB BLOOD ORDERABLES Final Resul t [facility] [address] [place] [address] [phone] * Mammography (12/23/2021) [facility] Mammogram performed Anatomical Region Laterality Modality Other Historical Provider HEALTH MAINTENANCE Final Result * LIPID PANEL, STANDARD (02/17/2021 10:48 AM EDT) [facility] Chol/HDLC Ratio 2.1 <5.0 (calc) [facility] Cholesterol, Total 156 <200 mg/dL [facility] HDL Cholesterol 74 > OR = 50 mg/dL [facility] LDL Cholesterol 61 mg/dL (calc) [facility] Comment: Reference range: <100 ?? Desirable range <100 mg/dL for primary prevention; ?? <70 mg/dL for patients with CHD or diabetic patients ?? with > or = 2 CHD risk factors. ?? LDL-C is now calculated using the [place] ?? calculation, which is a validated novel method providing ?? better accuracy than the Friedewald equation in the ?? estimation of LDL-C. ?? Rj SS et al. XUAN. 2013;310(19): 0044-6471 ?? (http://VidRocket.PetLove/faq/DOP612) Non-HDL Cholesterol 82 <130 mg/dL (calc) [facility] Comment: For patients with diabetes plus 1 major ASCVD risk ?? factor, treating to a non-HDL-C goal of <100 mg/dL ?? (LDL-C of <70 mg/dL) is considered a therapeutic ?? option. Triglycerides 124 <150 mg/dL [facility] 02/17/2021 10:4 8 AM EDT Kevin Name LAB BLOOD ORDERABLES Final Resul t [facility] [address] * Hm Colonoscopy (12/12/2012 12:52 PM EDT) Colonoscopy Normal Normal Narrative Lisbeth Julio - 12/12/2012 12:52 PM EDT Recommended 10 year follow up Historical Provider HEALTH MAINTENANCE Edited Result - Final from Last 3 Months or Most Recently Relevant to Health Maintenance Insurance [facility] [address] [place] [address] Advance Directives Documents on File Type Date Recorded Patient Airveyor Operator Expl anation Advance Directives and Living Will 04/18/2024 Health Care Proxy 04/18/24 Care Teams Directional Drill Operator Relationship Specialty Start Date End Date Name, MD Kevin [address] [place] [phone] PCP - General Family Medicine 08/27/18
--- OUTSIDE RECORDS SUMMARY | 2024-10-27 12:24 | XMS_ITS | Encounter Summary ---
Author Organization [employer] Address [address] [facility] [address] [place] [address] Care Team Providers Care Ornamental Iron Erector Name Role Phone Name, Kevin BIRD Primary Care Provider [phone] Reason for Visit * Reason Comments Med Refill Encounter Details Date Type Department Care Team ([facility] st Contact Info) Description 10/23/2024 Refill [facility] [address] [place], [place] [phone] Name, MD Kevin [address] [place] [address] Anxiety Social History Tobacco Use Types Packs/Day Years [...] Info) Description 10/31/2024 10:30 AM EST Telemedicine [facility] [address] [place] [phone] Kristina Elaine RN 01/28/2025 10:30 AM EDT Office Visit [facility] [address] [place] [phone] NameKevin MD [address] [place] [phone] documented as of this encounter Goals Goal Patient Goal Type Associated Problems Recent Progress Patient-Stated? Author Blood Pressure < 140/90 Blood Pressure 121/67( 025 10:10 AM EST) No Puia, Maya, PharmD Record your blood pressure once per day Blood Pressure No Puia, Maya, PharmD documented as of this encounter Visit Diagnoses Diagnosis Anxiety Anxiety state, unspecified documented in this encounter Additional Health Concerns Assessment Noted Time PHQ-9 Depression Total Score: 22 024 11:41 AM EST documented as of this encounter Care Teams Ornamental Iron Erector Relationship Specialty Start Date End Date Kevin Stone MD [address] [place] [phone] PCP - General Family Medicine 08/27/18 documented as of this encounter
--- OUTSIDE RECORDS SUMMARY | 2024-10-27 12:24 | XMS_ITS | Data Portability ---
Author Organization [employer] [facility], [place] in - [facility] Address [address] [place] [id number] Care Team Providers Care Digital Marketing Manager Name Role Phone [facility] Primary Care Provider Assessment Encounter Date Assessment Date Assessment LastModified by Organization Details LastModified Time 05/31/2023 05/31/2023 I provided real -time medical direction via phone for this encounter, and was available for additional phone based assistance as needed. I have reviewed and agree with the Assessment and Plan as documented by the Waste Baler. Patient given the opportunity to ask questions. Advised if develops CP/severe SOB/turning blue/severe abdominal or back pain /uncontrolled n/v/d or black/bloody emesis or stool/ AMS/ syncope/ hi fever to call 911-she verbalized understanding of instructions per the medic [email or web address] Not available 05/31/2023 23:36:25 08/30/2023 08/30/2023 I provided real -time medical direction via phone for this encounter, and was available for additional phone based assistance as needed. I have reviewed and agree with the Assessment and Plan as documented by the Waste Baler. Patient given the opportunity to ask questions. Advised if develops CP/severe SOB/turning blue/uncontrolle d n/v/d or black/bloody emesis or stool/ AMS/ syncope/ severe H/A/any visual, speech deficit or any focal weakness or numbness /hi fever unresponsive to APAP to call 911-she verbalized understanding of instructions to the medic [email or web address] Not available 08/31/2023 02:52:58 Plan of Treatment Reminders Order Date Submit Date Provider Last Modified By Organization Details Last Modified Time Details Appointments None recorded. Lab rapid SARS CoV 2 Ag, QL IA, respiratory specimen 2023 024 [email or web address] 0 [facility], [address] [place] [address], [id number], 4 13:43:51 rapid flu (A+B) 2023 024 [email or web address] 0 [facility], [address] [place] [address], [id number], 4 13:43:48 BMP, serum or plasma 2022 023 [email or web address] 0 [facility] - [facility], [address] [place] [address], [id number], 3 23:40:41 rapid SARS CoV 2 Ag, QL IA, respiratory specimen 2022 023 [email or web address] 0 [facility] - [facility], [address] [place] [address], [id number], 3 23:42:32 rapid flu (A+B) 2022 023 [email or web address] 0 [facility] - [facility], [address] [place] [address], [id number], 3 23:42:33 Referral None recorded. Procedures None recorded. Surgeries None recorded. Imaging None recorded. Medication Orders azithromyci n 250 mg tablet 2023 024 [email or web address] 0 [facility], [address] [place] [address], [id number], 4 13:43:49 azithromyci n 250 mg tablet 2023 [facility], [address] [place] [address], [id number], 4 15:59:12 Saline Mist 0.65 % nasal spray aerosol 2023 [facility], [address] [place] [address], [id number], 4 11:25:37 loperamide 2 mg tablet 2022 023 [facility], [address] [place], [id number], 17:08:38 Zofran 4 mg tablet 2022 023 [email or web address] 0 Not available 14:10:39 ondansetron 4 mg disintegrat ing tablet 2022 023 [email or web address] 0 Not available 14:10:39 loperamide 2 mg tablet 2022 023 [email or web address] 0 Not available 14:10:39 Patient TargetsNo targets recorded. Patient Instructions Encounter Date Encounter Id Patient Instructions Last Modified By Organization Details Last Modified Time 05/31/2023 [id number] orthostatic vitals* [email or web address] Not available 05/31/2023 23:40:41 Reason for Referral None Reported. Results Created Date Observation Date Name Description Value Unit Range Abnormal Flag Note LastModifiedBy Organization Detail LastModifiedTime 05/31/2005/31/2023 rapid flu (A+B) Flu negati ve Not Available Main - [facility] ed [address] [place] [address], [id number], 05/31/2023 23:42:15 05/31/20 23 05/31/2023 rapid SARS CoV 2 Ag, QL IA, respi rator y speci men rapid SARS CoV 2 Ag, QL IA, respiratory specimen negati ve Not Available Main - [facility] ed [address] [place] [address], [id number], 05/31/2023 23:42:09 08/30/19 24 08/30/2023 rapid flu (A+B) Flu negati ve Not Available Main - [facility] ed [address] [place] [address], [id number], 08/30/2023 13:37:06 08/30/19 24 08/30/2023 rapid SARS CoV 2 Ag, QL IA, respi rator y speci men rapid SARS CoV 2 Ag, QL IA, respiratory specimen negati ve Not Available Main - [facility] ed [address] [facility], [place], [phone], 08/30/2023 13:37:04 Result Notes None recorded. Medical Equipment None Reported. Allergies Allergen ID Allergen Name Allergen Category Reaction Reaction Severity Criticality Documentation Date Start Date Code Code System Note Provider Name and Address Organization Details Recorded Time 3432 morphine medicatio n Not available Not available Not available 05/31/2023 7052 RxNorm Not Available [facility] - production 03:50:42 Medications Name Sig Start Date Stop Date Status Note LastModified by Organization Details LastModified Time atorvastatin 20 mg tablet TAKE 1 TABLET BY MOUTH EVERY DAY active Not Available Not Available No t Available trazodone 50 mg tablet TAKE 1 TABLET BY MOUTH EVERY DAY AT BEDTIME active Not Available Not Available No t Available azithromycin 250 mg tablet TAKE 1 TABLET BY MOUTH EVERY DAY START 08/31/2023 active Not Available Not Available N ot Available tizanidine 4 mg tablet TAKE 1 TABLET BY MOUTH EVERY 8 HOURS NEEDED. NO MORE THAN 3 DOSES IN 1 DAY. active Not Available Not Available No t Available loperamide 2 mg tablet TAKE 1 TABLET BY MOUTH EVERY 6 TO 8 HOURS NEEDED active Not Available Not Available No t Available aspirin 81 mg tablet,delay ed release TAKE 1 TABLET BY MOUTH EVERY DAY active Not Available Not Available No t Available Zofran 4 mg tablet 2 tablets sl now 2022 active Not Available Not Available Not Avai lable levothyroxin e 88 mcg tablet TAKE 1 TABLET BY MOUTH EVERY DAY active Not Available Not Available No t Available citalopram 20 mg tablet TAKE 1 TABLET BY MOUTH EVERY DAY active Not Available Not Available No t Available Deep Sea Nasal 0.65 % spray aerosol USE 2 SPRAYS EVERY 3 TO 4 HOURS IN EACH NOSTRIL NEEDED active Not Available Not Available No t Available nortriptylin e 10 mg capsule TAKE 1 CAPSULE BY MOUTH EVERY DAY active Not Available Not Available No t Available lidocaine 5 % topical patch APPLY 1 PATCH TOPICALLY TO SKIN, LEAVE ON FOR 12 HOURS AND OFF FOR 12 HOURS DIRECTED active Not Available Not Available No t Available clonazepam 2 mg tablet TAKE 1 TABLET BY MOUTH TWICE DAILY active Not Available Not Available No t Available omeprazole 20 mg capsule,rose yed release TAKE 1 CAPSULE BY MOUTH DAILY 30 TO 60 MINUTES BEFORE A MEAL active Not Available Not Available No t Available montelukast 10 mg tablet TAKE 1 TABLET BY MOUTH DAILY IN THE EVENING active Not Available Not Available No t Available ondansetron 4 mg disintegrati ng tablet Place 1 tablet every 8 hours by translingua l route as needed. 2022 active Not Available Not Available Not Avai lable Ventolin HFA 90 mcg/actuatio n aerosol inhaler INHALE 2 PUFFS BY MOUTH EVERY 4 TO 6 HOURS NEEDED active Not Available Not Available No t Available valsartan 160 mg tablet TAKE 1 TABLET BY MOUTH EVERY DAY active Not Available Not Available No t Available valsartan 40 mg tablet TAKE 1 TABLET BY MOUTH EVERY MORNING active Not Available Not Available No t Available pregabalin 50 mg capsule TAKE 1 CAPSULE BY MOUTH EVERY DAY IN THE MORNING AND TAKE 2 CAPSULES BY MOUTH EVERY DAY AT BEDTIME active Not Available Not Available No t Available cholecalcife rol (vitamin D3) 25 mcg (1,000 unit) tablet TAKE 2 TABLETS BY MOUTH EVERY DAY active Not Available Not Available No t Available naloxone 4 mg/actuation nasal spray FOR SUSPECTED OPIOID OVERDOSE. SPRAY 0.1mL IN ONE NOSTRIL. REPEAT IN ALTERNATE NOSTRIL 2-3 MINUTES IF NEEDED. SEEK MEDICAL ATTENTION IMMEDIATELY EVEN IF PATIENT RESPONDS. active Not Available Not Available No t Available Trelegy Ellipta 200 mcg-62.5 mcg-25 mcg powder for inhalation USE 1 INHALATION DAILY active Not Available Not Available No t Available Vitals Date Recorded Respiratory rate Heart rate Oxygen saturation Oxygen saturation in Arterial blood by Pulse oximetry Body temperature Systolic blood pressure Diastolic blood pressure Provider Name and Address Organization Details Last Updated DateTime 3 16 /min 63 /min 99 % 99 % 97.9 [degF] 110 mm[Hg] 54 mm[Hg] Not Available [facility] - production 3 14:10:33 Date Recorded Body weight Provider Name an d Address Organization Details Last Updated DateTime 05/31/2023 88615.29 g Chikis Mitchell [address] [facility],[address], [place], [address], [place] - [facility] 05/31/2023 23:32:50 Date Recorded Oxygen saturation Oxygen saturation in Arterial blood by Pulse oximetry Body weight Respiratory rate Body temperature Heart rate Systolic blood pressure Diastolic blood pressure Provider Name and Address Organization Details Last Updated DateTime 4 97 % 97 % 53156.4 8 g 18 /min 97.3 [degF] 76 /min 176 mm[Hg] 76 mm[Hg] Not Available [facility] - production 4 13:11:14 Date Recorded Systolic blood pressure Diastolic blood pressure Provider Name and Address Organization Details Last Updated DateTime 08/30/2023 180 mm[Hg] 86 mm[Hg] Genesis Guerrero MD [address] [place] [address],[address], [place], [address], [facility] 08/31/2023 02:58:03 Social History None recorded. Functional Status None recorded. Mental Status None recorded. Family History Nothing Reported. Medical History No medical history recorded. Gynecological HistoryNo gynecological history recorded. Obstetrics History GPAL:G 0 P 0 0 0 0 Past Encounters Encounter ID Performer Location Encounter Start Date Encounter Closed Date Diagnosis/Indication Diagnosis SNOMED-CT Code Diagnosis ICD10 Code Diagnosis Note [id number] Genesis Guerrero MD [address] [address] 05/31/2023 13:57:00 06/05/2023 00:18:34 Nausea, vomiting and diarrhea 9535311 R11.2 R19.7 I felt 1 liter of normal saline IV would makesthe patient feel better but the medic was unable to establish an IV. She felt better after the Zofran and although her H&H reveals mild hemoconcen tration the rest of her lab work did not indicate dehydratio n-discusse d with the patient red flags and if she is not feeling better in a day or 2 to call us. Repeat visit and she verbalized understand ingBMP results: BMP below closed b4 I could document results: NA 146/K3.7/ CL 111/ C02 25/BUN 13/creatin ine 0.8/BS 98/anion gap 15, ionized calcium 1.15/H&H 15.6/46 [id number] Genesis Guerrero MD [address] [address] 08/30/2023 13:11:12 09/01/2023 15:24:23 Essential hypertension 65254995 I10 Advised to continue her regular medication and close follow-up with PCP. BP probably raised due to sinus congestion and discomfort but needs close monitoring may need additional antihypert ensive if it remains elevated. No signs of a stroke clinically patient advised what to look for. Sinusitis 89399866 J32.9 Advised to apply warm compresses or take hot showers to help alleviate sinus congestion . Also prescribed sinus nasal saline spray/she is on Trelegy so I did not want to use fluticason e nasal as well. Use her Ventolin inhaler 2 puffs 4 times a day. Augmentin started. Advised may have Tylenol every 6 hours. Health Concerns Section Related Observation LastModified by Organization Detai ls LastModified Time None Recorded Concern Status LastModified by Organization Details LastModified Time None Recorded Advance Directives Directive None Recorded Payers Encounter Date Sequence Insurance Name Policy Number Policy Mai Covered Member ID Mai Member ID Guarantor Name 05/31/2023 1 [facility] - DOS ON OR AFTER 2022 - DUAL ELIGIBLE - NURSING HOME OPTIONS AND ONE CARE (MEDICARE REPLACEMENT/ADV ANTAGE - HMO) Piper Knight [id number] Piper Knight 08/30/2023 1 [facility] - DOS ON OR AFTER 2022 - DUAL ELIGIBLE - NURSING HOME OPTIONS AND ONE CARE (MEDICARE REPLACEMENT/ADV ANTAGE - HMO) Piper Knight [id number] Piper Knight Notes Date Note Type Note Provider Name and Address Organization Details Recorded Time 05/31/2023 text/html HPI: PMH: hypothyroidism, migraine Call to Piper Knight, reports having vomiting and diarrhea x 2 day. Per pt has vomited 5 times. No blood or green bile. Per pt stool is not bloody or black. Pt having chills. No fever, FLORY sx. Pt is tolerating fluids today but still very nauseas. Pt also having weakness. Pt advised of disposition, agrees to [facility] referral for eval. .................... .................... .................... .................... .................... .................... .................... . [facility] Nursing Assessment: Comments: Reviewed, no more info needed, Boni GARCÍA .................... .................... .................... .................... .................... .................... .................... . Waste Baler Note From Garth Amezcua: Dispatched to the call address for the female with n/v/d. Pt states she started last night with diarrhea that came on suddenly. Pt has vomited 5X+ and had 4-5 episodes of diarrhea. She advises the diarrhea is not black or bloody but has a very bad smell. Pt denies being on any abx recently and has not been sick other than now. She states she attempted to drink some luis bernardo yesterday but it made her very nauseous. Today she is able to tolerate small amounts of liquids but still gets pretty nauseous. Pt denies SoB or CP at this time. Pt was found opening door, CAOx4, airway open and patent, breathing non labored, able to speak in full sentences, -JVD, -HEENT, skin PWD, pupils PERRL, abd soft non tender/distended but pain diffusely across all quadrants. Chem 8 conducted- all results WNL, rapid flu and covid both negative. [facility] consulted. Pt given 8mg ODT zofran and 4mg PO loperamide. Pt advised to follow up with PCP. Red flags discussed. ALL times are approx. .................... .................... .................... .................... .................... .................... .................... . Disposition: FulfilledSEGMD: -. Patient complains of diffuse abdominal pain but no distention. She has not had any recent antibiotics and there is been no travel or exposure to anyone else ill. She has had normal urine output and denies UTI symptoms Genesis Guerrero MD [address] [facility],[address], [place], [address], [facility] - [employer] 05/31/2023 23:42:43 08/30/2023 text/html HPI: Call to Piper Knight, reports having 2 weeks cough, PANCHAL, body aches and congestion. Pt has not tested for COVID-19. PT states bp last night was 173/101. Pt had already taken BP meds. Per pt also endorses cough and pain with cough. Per pt having increased fatigue. PT not able to come into our [facility]. Agrees to [facility] for exam as declined ER. .................... .................... .................... .................... .................... .................... .................... . CRC Nurse Triage Notes (Michelle Lazar): Comments: No further information needed to process visit. .................... .................... .................... .................... .................... .................... .................... . Waste Baler Note From Jad Rosenberg: Pt co sinus congestion and cough for a month. Had green mucus but now it? s yellow. Hasn? t taken OTC meds. Pt denies CP sob fever. Baseline vitals assessed. Lungs have slight rhonchi. Pain under eyes and left and right of nose. C contacted and 500mg azithro given PO. RX for nasal saline and azithro called in. Pt education on signs that indicate the ED. Waste Baler Allergies: Morphine .................... .................... .................... .................... .................... .................... .................... . Disposition: FulfilledSEGMD: Patient reports she is taking no OTC decongestants/cough medicines which could raise her blood pressure. The only thing she is taking is a menthol eucalyptus cough drop, which is unlikely to reduce hypertension.She is on valsartan 200 mg daily and reports compliance with this medication. She reports compliance with a low-salt diet. She complains of a frontal headache worse with leaning forward it is described as a pressure and tightness. She has had no visual changes no speech changes, no focal weakness or numbness. She denies shortness of breath. She has a Ventolin inhaler which she is using rarely as needed is almost empty. She does take her Trelegy every morning. Patient has no nausea/ vomiting. She has diarrhea off-and-on which is chronic and unchanged from her baseline. And she denies melena and hematochezia.PMH includes but is not limited to HTN, COPD, hypothyroidism Genesis Guerrero MD [address] [place] [address],[address], [place], [address], [employer] [employer] 08/31/2023 03:00:42 OBGyn Episode No OBEpisode recorded.
--- OUTSIDE RECORDS SUMMARY | 2024-10-27 12:24 | XMS_ITS | Encounter Summary ---
Author Organization [employer] [facility] Address [address] [place] [address] [address] Care Team Providers Care Instructor Looping Name Role Phone NameKevin MD Primary Care Provider [phone] Maya Harris PharmD Unavailable [phone] Reason for Visit * Reason Comments Med Refill Encounter Details Date Type Department Care Team (Late st Contact Info) Description 01/23/[address] [facility] [address] [place] [address] [phone] Kevin Stone MD [address] [place] [phone] Anxiety Social History Tobacco Use Types Packs/Day [...] Info) Description 10/31/2024 10:[address] [facility] [address] [place] [address] [phone] Kristina Elaine RN 01/28/2025 10:30 AM EDT Office Visit [facility] [address] [place] [address] [phone] Kevin Stone MD [address] [place] [phone] documented as of this encounter Visit Diagnoses Diagnosis Anxiety Anxiety state, unspecified documented in this encounter Care Teams Instructor Looping Relationship Specialty Start Date End Date Name, MD Kevin [address] [place] [address] PCP - General Family Medicine 08/27/18 Maya Harris PharmD [address] [place] [address] Pharmacist Internal Medicine 05/25/23 11/05/23 documented as of this encounter
--- OUTSIDE RECORDS SUMMARY | 2024-10-27 12:24 | XMS_ITS | Encounter Summary ---
Author Organization [employer] Address [address] [facility] [address] [place] [address] Care Team Providers Care Investor Relations Analyst Name Role Phone Name, Kevin BIRD Primary Care Provider [phone] Reason for Visit * Reason Comments office visit extended Encounter Details Date Type Department Care Team ([facility] st Contact Info) Description 10/27/2024 10:15 AM EST Office Visit [facility] [address] [place], [place] [phone] Name, MD Kevin [address] [place] [address] Caregiver stress (Primary Dx); Essential hypertension Social History Tobacco Use Types Packs/Day Years [...] PM EST documented as of this encounter Last Filed Vital Signs Vital Sign Reading [...] 1.6 oz) 10/27/2024 10:10 AM EST Height - - Body Mass Index 38.75 07/28/2024 3:19 PM EST documented in this encounter Progress Notes * Kevin Stone MD - 10/27/2024 10:15 AM EST Subjective Patient ID: Piper Knight is a 69 y.o. female who presents for office visit extended . Patient comes for a follow-up visit. She has ongoing depression and anxiety. Symptoms are exacerbated lately because of caregiver stress related to taking care of her mother that has dementia. The patient has a therapist but she does not have a prescribing psychiatric provider. She has been gettingher psychiatric medications prescribed by me. The patient is not suicidal or homicidal. She describes significant difficulty sleeping. Review of Systems Constitutional: Negative for chills and fever. HENT: Negative for sore throat. Respiratory: Negative for cough, shortness of breath and wheezing. Cardiovascular: Negative for chest pain, palpitations and leg swelling. Gastrointestinal: Negative for abdominal pain. Psychiatric/Behavioral: Positive for sleep disturbance. Negative for self-injury and suicidal ideas. The patient is nervous/anxious. Visit Vitals BP 121/67 Pulse 97 Temp 95.7 ??F (35.4 ??C) (Temporal) Resp 18 Wt 205 lb 1.6 oz (93 kg) SpO2 98% BMI 38.75 kg/m?? Smoking Status Former BSA 2 m?? Objective Physical Exam Constitutional: Appearance: Normal appearance. Cardiovascular: Rate and Rhythm: Normal rate and regular rhythm. Heart sounds: No murmur heard. No gallop. Pulmonary: Effort: Pulmonary effort is normal. No respiratory distress. Breath sounds: Normal breath sounds. No wheezing. Musculoskeletal: Right lower leg: No edema. Left lower leg: No edema. Neurological: Mental Status: She is alert. Assessment/Plan Diagnoses and all orders for this visit: Caregiver stress Comments: Continue Celexa, Pamelor and melatonin at bedtime, clonazepam as needed, continue talking to her therapist. I recommended the patient to come for acupuncture to help with anxiety and insomnia. Essential hypertension Comments: Well-controlled. Continue Exforge. Recheck BMP. Orders: - Basic Metabolic Panel; Future documented in this encounter Plan of Treatment Upcoming Encounters Date Type Department Care Team (Late st Contact Info) Description 10/31/2024 10:30 AM EST Telemedicine [facility] [address] [place] [phone] Kristina Elaine RN 01/28/2025 10:30 AM EDT Office Visit [facility] [address] [place] [phone] Kevin Stone MD [address] [place] [phone] documented as of this encounter Goals Goal Patient Goal Type Associated Problems Recent Progress Patient-Stated? Author Blood Pressure < 140/90 Blood Pressure 121/67( 025 10:10 AM EST) No Maya Harris PharmD Record your blood pressure once per day Blood Pressure No Maya Harris PharmD documented as of this encounter Procedures Procedure Name Priority Date/Time Associated Diagnosis Comments BASIC METABOLIC PANEL Routine 10/27/2024 10:38 AM EST Essential hypertension documented in this encounter Results * (ABNORMAL) Basic Metabolic Panel (10/27/2024 10:38 AM EST) Sodium 143 135 - 145 mmol/L [facility] Potassium 3.5 3.3 - 5.1 mmol/L [facility] Chloride 113(H) 96 - 108 mmol/L [facility] Carbon Dioxide 22 22 - 29 mmol/L [facility] Anion Gap 12 12 - 20 [facility] Urea Nitrogen (BUN) 13 9 - 16 mg/dL [facility] Creatinine, Serum 0.90 0.5 - 1.4 mg/dL [facility] Estimated Glomerular Filt Rate >60 [facility] Comment:Chronic Kidney Disea se: Estimated GFR < 60 mL/min/1.49p9Vqlyww Kidney Disease: Estimated GFR < 15 mL/min/1.73m2 Glucose 97 60 - 115 mg/dL [facility] Calcium 9.2 8.4 - 10.2 mg/dL [facility] Blood Venous blood specimen / Unknown 10/27/2024 10:38 AM EST 10/27/2024 11:36 AM EST Kevin Stone MD LAB BLOOD ORDERABLES Final Resul t [facility] [address] [place] [address] [phone] documented in this encounter Visit Diagnoses Diagnosis Caregiver stress- Primary Essential hypertension Unspecified essential hypertension documented in this encounter Additional Health Concerns Assessment Noted Time PHQ-9 Depression Total Score: 5 10/28/19 25 10:41 AM EST documented as of this encounter Care Teams Investor Relations Analyst Relationship Specialty Start Date End Date Name, MD Kevin [address] [place] [phone] PCP - General Family Medicine 08/27/18 documented as of this encounter
--- OUTSIDE RECORDS SUMMARY | 2024-10-27 12:25 | XMS_ITS | Encounter Summary ---
Author Organization [employer] Address [address] [facility] 7t [place] [address] Care Team Providers Care Drawer In Stitch Bonding Machine Name Role Phone Name, Kevin BIRD Primary Care Provider [phone] Maya Harris PharmD Unavailable [phone] Reason for Visit * Reason Comments Med Refill Encounter Details Date Type Department Care Team ([facility] st Contact Info) Description 09/25/2023 Refill [facility] [address], [place] [phone] Name, MD Kevin [address] [place], [place] [phone] Anxiety Social History Tobacco Use Types Packs/Day [...] Recorded Patient Health Questionnaire-2 Score 6 09/25/2023 Comments Unknown Sex and Gender Information Value [...] Info) Description 10/31/2024 10:30 AM EST Telemedicine [facility] [address] [place] [phone] Kristina Elaine RN 01/28/2025 10:30 AM EDT Office Visit [facility] [address] [place] [phone] NameKevin MD [address] [place] [phone] documented as of this encounter Goals Goal [...] documented as of this encounter Care Teams Drawer In Stitch Bonding Machine Relationship Specialty Start Date End Date NameKevin MD [address] [place] [phone] PCP - General Family Medicine 1/1/19 Maya Harris, Kyaw [address] [place] [phone] Pharmacist Internal Medicine 05/25/23 11/05/23 documented as of this encounter
--- OUTSIDE RECORDS SUMMARY | 2024-10-27 12:25 | XMS_ITS | Clinical Summary ---
Author Organization [facility] Address [address] [place] [address] Care Team Providers Care Raw Hide Trimmer Name Role Phone Unavailable Primary Care Provider Unavailabl e Source Comments PLEASE NOTE, if this patient is a minor, it may be UNLAWFUL to discuss sensitive information that is contained in these records (such as FAMILY PLANNING, MENTAL HEALTH or SUBSTANCE ABUSE) with the minor patient's parent or other person without the patient's specific authorization.[facility] Medications No known medications Social History Tobacco Use Types Packs/Day Years Used Date Smoking Tobacco: Never Passive Smoke Exposure: Never Smokeless Tobacco: Never Tobacco Cessation:Counseling Given: Not Answered Social Connections Answer Date Recorded Connectedness 0 05/08/2024 Financial Resource Strain Answer Date R ecorded Financial Resource Strain 0 2023 Stress Answer Date Recorded Stress 0 04/30/2024 Physical Activity Answer Date Recorded Physical Activity 0 04/30/2024 Food Insecurity Answer Date Recorded Food 0 05/23/2024 Transportation Needs Answer Date Record ed Transportation 0 04/30/2024 Housing Stability Answer Date Recorded Housing 0 04/30/2024 Safety and Environment Answer Date [place] rded Safety 0 04/30/2024 Utilities Answer Date Recorded Utilities 0 04/30/2024 Employment Answer Date Recorded Stress 0 05/08/2024 Comments Unknown Sex and Gender Information Value Date Recorded Sex Assigned at Not on file Legal Sex Female 8:06 AM PDT Gender Identity Not on file Sexual Orientation Not on file Last Filed Vital Signs Vital Sign Reading Time Taken Comments Blood Pressure 128/76 05/26/2024 3:53 PM EDT Pulse 72 05/26/2024 3:53 PM EDT Temperature - - Respiratory Rate - - Oxygen Saturation - - Inhaled Oxygen Concentration - - Weight - - Height - - Body Mass Index - - Plan of Treatment Health Maintenance Due Date Last Done Comments Dental Prophy 1956 Hepatitis C Screening 1956 Medicare Annual Wellness Visit 1974 Breast Cancer Screening (Mammogram) 1996 CT Colonography 2001 Colonoscopy 2001 Colorectal Cancer Screening 2001 FIT/gFOBT 2001 Fecal DNA 2001 Flexible Sigmoidoscopy 2001 Imm-Zoster, Recombinant (1 of 2) 2006 Bone Density Screening 2021 Falls Prevention 2021 Diabetes Screening 03/10/2023 03/10/2020 [id number] ( season) 2024 Imm-Influenza (#1) 2024 06/07/2021, 0 09/29/2019, 07/10/2017, Additional history exists Alcohol and Drug Screen 08/27/2024 Depression Annual Screen 08/27/2024 Hypertension Screening (#1) 05/26/2025 Tobacco Screening 05/26/2025 05/26/2024 Dental BW 05/28/2025 05/26/2024 Dental Examination 05/28/2025 05/26/2024 Dental Perio Charting 05/28/2025 05/26/2024 Lipid Screening 02/17/2026 02/17/2021 Dental FMX/Pano 05/28/2029 05/26/2024 Imm-DTaP/Tdap/Td (3 - Td or Tdap) 01/06/2034 024, 11/14/2012 Imm-Pneumococcal 65+ Completed 03/09/2023, 12/02/19 19 Procedures Procedure Name Priority Date/Time Associated Diagnosis Comments INTRAORAL - COMP SERIES OF RADIOGRAPHIC IMAGES Routine 05/26/2024 4:00 PM EDT Retained tooth root Dental caries on smooth surface penetrating into pulp COMP ORAL EVALUATION - NEW/ESTABLISHED PATIENT Routine 05/26/2024 4:00 PM EDT Dental caries on smooth surface penetrating into pulp Retained tooth root from Last 3 Months or Most Recently Relevant to Health Maintenance Insurance [facility] Member Subscriber Plan / Payer (Ef fective 2022-Present) Name:Piper Knight Relation to Subscriber:Self Name:Piper Knight Payer ID:[id number] Group ID:Not on file Type:Medicare Address: [place] [id number]
--- OUTSIDE RECORDS SUMMARY | 2024-10-27 12:25 | XMS_ITS | Encounter Summary ---
Author Organization [employer] Address [address] [facility] 7t [place] [address] Care Team Providers Care Dental Director Name Role Phone Name, Kevin BIRD Primary Care Provider [phone] Reason for Visit * Reason Onset Date Comments Referral 01/07/2024 Encounter Details Date Type Department Care Team ([facility] st Contact Info) Description 01/07/2024 Telephone [facility] [address] [place], [place] [phone] Name, MD Kevin [address] [place] [address] Referral Social History Tobacco Use Types Packs/Day Years [...] encounter Miscellaneous Notes * Telephone Encounter - Jennie Hoang RN - 01/07/2024 4:44 PM EDT T/C to [facility] for below message, [facility] stares that healthcare account manager is asking for referral for diarrhea for this pt. [facility] is not sure this new symptoms or ongoing. [facility] advised that message willbe sent to PCP for review. Please review and advise of pt. Needs apt. For further evaluation. * Telephone Encounter - Malaika Matt - 01/07/2024 2:32 PM EDT Tc from [facility] at [facility] calling requesting a referral for gastro due to issues with diarrhea Any questions for [facility] [phone] ext [phone] documented in this encounter Plan of Treatment Upcoming Encounters Date Type Department Care Team (Late st Contact Info) Description 10/31/2024 10:30 AM EST Telemedicine [facility] [address] [place] [phone] Kristina Elaine RN 01/28/2025 10:30 AM EDT Office Visit [facility] [address] [place] [phone] Name, MD Kevin [address] [place] [address] documented as of this encounter Goals Goal Patient Goal Type Associated Problems Recent Progress Patient-Stated? Author Blood Pressure < 140/90 Blood Pressure 121/67( 025 10:10 AM EST) No PuiaVelasquezMaya, PharmD Record your blood pressure once per day Blood Pressure No PuMaya powers, PharmD documented as of this encounter Visit Diagnoses Not on filedocumented in this encounter Additional Health Concerns Assessment Noted Time PHQ-9 Depression Total Score: 22 024 11:41 AM EST documented as of this encounter Care Teams Dental Director Relationship Specialty Start Date End Date Name, MD Kevin [address] [place] [address] PCP - General Family Medicine 08/27/18 documented as of this encounter
== END 2024-10-27 10:38 | disposition home or self-care (01) ==
LOC: HO.HHCL 10:37
PROVIDERS: Visit Provider Internal Medicine Geriatric Medicine
DX: I10 Essential (primary) hypertension (principal)
CPT/HCPCS: 36415; 80048

== ENCOUNTER 2025-03-30 14:19 | Outpatient (REF) | payer OTHER, SELFPAY ==
--- NOTE | ~2025-03-30 | MM_ITS ---
EXAMINATION: MM SCREENING DIGITAL BREAST TOMOSYNTHESIS, BILATERAL CLINICAL INFORMATION: Screening. Asymptomatic. COMPARISON: Mammography: Comparison is made with available priors TECHNIQUE: Digital breast mammography with tomosynthesis is performed in both the craniocaudal and mediolateral oblique views along with computer-aided detection (CAD). FINDINGS: There are scattered areas of fibroglandular density (ACR BI-RADS breast composition Category b). Bilateral circumscribed oval masses which wax and wane consistent with benign fibrocystic changes. Bilateral scattered focal asymmetries are stable. There are no significant masses, abnormal calcifications, or other abnormalities. MM/MM tomosynthesis screening BI IMPRESSION: No mammographic evidence of malignancy. ASSESSMENT: BI-RADS BI-RADS 2 - Benign Findings RECOMMENDATION: Routine annual mammography screening. 1 year F/U This examination should not preclude the clinical evaluation of a suspicious palpable abnormality. This patient's information was entered into a reminder system with a target due date for their next mammogram. Electronically signed by: Kala Solis DO 04/09/2025 02:23 PM EDT
--- OUTSIDE RECORDS SUMMARY | 2025-03-30 14:23 | XMS_ITS | Clinical Summary ---
Author Organization [facility] Address [id number] [place] [phone] Care Team Providers Care Production Pattern Maker Name Role Phone Name, Kevin BIRD Primary Care Provider Surgical History Surgery Date Site/Laterality Comments HYSTERECTOMY PROCEDURE: HISTORICAL HYSTERECTOMY; COMMENT: right ovary retained, in 1999, for prolapsed uterus COLONOSCOPY 11/25/2012 PROCEDURE: AL COLONOSCOPY FLX DX W/COLLJ SPEC WHEN PFRMD; [...] Vaccines (1 of 2) 2006 RSV Immunization Adult Patients (1 - Risk 60-74 years 1-dose series) 2016 Colorectal Cancer Screening: Colonoscopy 08/09/2022 Falls Risk Assessment 08/09/2022 Hepatitis C Screening 08/09/2022 Osteoporosis Screening (Bone Density Screening) 08/09/2022 Social Influencers of Health Screening 08/09/2022 DTaP,Tdap,and Td Vaccines (2 - Td or Tdap) 11/14/2022 11/14/2012 COVID-19 Vaccine (1 - 2023-2 5 season) 2024 Depression Screening 08/27/2024 Influenza Vaccine (#1) 2025 5, 06/26/2014, 05/27/2012 HIB Vaccines Aged Out [...] age to complete this topic Meningococcal B Vaccine Aged Out No l onger eligible based on patient's age to complete this topic RSV Immunization Patients Under 20 months Aged Out No longer eligible b ased on patient's age to complete this topic Varicella Vaccines Aged Out No longer eligible based on patient's age to complete this topic Advance Directives Documents on File Type Date Recorded Patient Security Patrol Driver Expl anation Health Care Decision (hx) 04/18/2024 CLAIR LEÓN DIRECTIVE Care Teams Production Pattern Maker Relationship Specialty Start Date End Date Name, MD Kevin [address] [place], [place] PCP - General Internal Medicine 06/10/12
--- OUTSIDE RECORDS SUMMARY | 2025-03-30 14:23 | XMS_ITS | Encounter Summary ---
Author Organization [employer] Address [address] [place] [address] 7t [place] [address] Care Team Providers Care Staking Press Operator Name Role Phone Name, Kevin BIRD Primary Care Provider [phone] Maya Harris PharmD Unavailable [phone] Encounter Details Date Type Department Care Team (Late st Contact Info) Description 10/03/2022 Orders Only [facility] [address] [place], [place] [phone] Gaby Quiles LPN Social History Tobacco Use [...] Care Team (Late st Contact Info) Description 04/10/2025 9:30 AM EDT Telemedicine [facility] [address] [place], [place] [phone] Kristina Elaine RN documented as of this encounter Visit Diagnoses Not on filedocumented in this encounter Care Teams Staking Press Operator Relationship Specialty Start Date End Date Name, MD Kevin [address] [place] [address] PCP - General Family Medicine 08/27/18 Maya Harris PharmD [address] [place] [phone] Pharmacist Internal Medicine 05/25/23 11/05/23 documented as of this encounter
--- OUTSIDE RECORDS SUMMARY | 2025-03-30 14:24 | XMS_ITS | Clinical Summary ---
Author Organization [facility] Address [address] [place] [address] Care Team Providers Care Food Preparation Worker Name Role Phone Unavailable Primary Care Provider [...] Falls Prevention 2021 Diabetes Screening 03/10/2023 03/10/2020 [id number] ( season) 2024 Alcohol and Drug Screen 08/27/2024 Depression Annual Screen 08/27/2024 Imm-Influenza (#1) 2025 06/07/2021, 0 09/29/2019, 07/10/2017, Additional history exists Hypertension Screening (#1) 05/26/2025 Tobacco Screening 05/26/2025 05/26/2024 Dental BW 05/28/2025 05/26/2024 Dental Examination 05/28/2025 05/26/2024 Dental Perio Charting 05/28/2025 05/26/2024 Lipid Screening 02/17/2026 02/17/2021 Dental FMX/Pano 05/28/2029 05/26/2024 Imm-DTaP/Tdap/Td (3 - Td or Tdap) 01/06/2034 024, 11/14/2012 Imm-Pneumococcal 50+ Completed 03/09/2023, 12/02/19 19 Procedures Procedure Name [...] Most Recently Relevant to Health Maintenance Insurance [facility] D[facility] Member Subscriber Plan / Payer (Ef fective 2022-Present) Name:Piper Knight Relation to Subscriber:Self Name:Piper Knight Payer ID:[id number] Group ID:Not on file Type:Medicare Address: [place] [id number]
[2025-03-30 15:10] LABS: Alanine Aminotransferase 32 U/L (0-31); Albumin Level 4.1 g/dL (3.5-5.0); Alkaline Phosphatase 122 U/L (39-117); Anion Gap 13 (12-20); Aspartate Amino Transferase 22 U/L (5-31); Blood Urea Nitrogen 14 mg/dL (9-16); Calcium 8.5 mg/dL (8.4-10.2); Carbon Dioxide 25 mmol/L (22-29); Chloride 112 mmol/L (96-108); Cholesterol 232 mg/dL (<200); Estimated Glomerular Filt Rate > 60; HDL Cholesterol 72 mg/dL (>40); Potassium 3.8 mmol/L (3.3-5.1); Sodium 146 mmol/L (135-145); Total Protein 7.2 g/dL (6.5-8.0); Triglycerides 180 mg/dL (<150)
== END 2025-03-30 14:20 | disposition home or self-care (01) ==
LOC: HO.MAMMO 14:19
PROVIDERS: PCP Internal Medicine Geriatric Medicine; Visit Provider Internal Medicine Geriatric Medicine
DX: Z12.31 Encounter for screening mammogram for malignant neoplasm of breast (principal); E03.9 Hypothyroidism, unspecified; Z79.899 Other long term (current) drug therapy
CPT/HCPCS: 36415; 77063; 77067; 80053; 80061; 84443

== ENCOUNTER → 2025-03-30 15:00 | Outpatient (BNV) | payer OTHER, SELFPAY | PROVIDERS: PCP Internal Medicine Geriatric Medicine; Visit Provider Internal Medicine | DX: Z12.31 Encounter for screening mammogram for malignant neoplasm of breast (principal) | CPT/HCPCS: 77063; 77067 ==